=== PATIENT | male | born 1940 | race Caucasian/White ===

== ENCOUNTER → 2022-10-28 09:48 | Outpatient (BNVA) | payer MEDICARE, SELFPAY | PROVIDERS: PCP Internal Medicine; Visit Provider Physician Assistant | DX: M75.122 Complete rotator cuff tear or rupture of left shoulder, not specified as traumatic (principal) | CPT/HCPCS: 99212 ==

== ENCOUNTER 2022-11-16 08:54 | Outpatient (AMB) | payer MEDICARE, SELFPAY ==
--- NOTE | 2022-11-16 08:55 | A.OFFVIS_ITS ---
Intake Vital Signs 11/16/22 08:56 Height 5 ft 5 in Weight 150 lb BMI 25.0 Intake Visit Reasons: ov- discuss concerns for RTC surgery Intake Note: Joesph is an 82 year old male who presents today for a follow up of his left shoulder pain and weaknss. Today the patient is most concerned with progressively worsening low back pain which radiates into his right leg as well as associated right leg weakness. The patient states that he underwent low back surgery by Dr. Pan several years ago. He was also evaluated early is here by a back specialist in [place]. The patient states that he has fallen several times over the last few months. He is concerned because his right leg continues to get weaker over time. He has done physical therapy which gave him minimal relief. Allergies No Known Allergies Allergy (Verified 11/16/22 08:59) PFSH Medical History Hx of osteoarthritis Social History Current occupational status: retired Current occupation: left hand Physical Exam Vital Signs: BMI result Body Mass Index 25.0 Const Other: Well-nourished well-developed very friendly male awake alert and oriented x3 in no acute distress Extrem Other: Bilateral upper extremity examination shows good capillary refill, no skin lesions noted, normal sensation light touch Left shoulder examination shows slightly decreased range of motion when compared to his right shoulder, 4/5 strength with supraspinatus testing, positive impingement signs, tenderness over his acromioclavicular joint, no instability Low back examination shows right-sided paraspinal muscle tenderness, 4/5 strength with testing of his right hip flexors and knee extensors, positive straight leg raise test on the right at 70 degrees Results Reviewed Results Reviewed: MRI of the patient's lumbar spine is not available today MRI of the patient's left shoulder show severe acromioclavicular joint narrowing, type 2 acromion, Assessment & Plan Assessment & Plan (1) Complete rotator cuff tear of left shoulder: Code(s): M75.122 - Complete rotator cuff tear or rupture of left shoulder, not specified as traumatic Plan Mr. Guy presents with progressively worsening left shoulder pain and weakness due to impingement syndrome, acromioclavicular joint arthritis and a f ull-thickness rotator cuff tear. I had a lengthy discussion with the patient regarding the treatment options. At this point he has failed continued nonoperative treatments. The risks and benefits of left shoulder surgery were discussed at length with the patient. Surgery will most likely involve left shoulder diagnostic arthroscopy with distal clavicle excision, acromioplasty and rotator cuff repair. The patient's shoulder surgery is tentatively scheduled for November 25. Because of his progressively worsening right leg weakness likely due to recurrence lumbar spine pathology I will have him evaluated by our spine service here at [facility] prior to proceeding with left shoulder surgery. We can certainly reschedule his shoulder surgery as needed to allow for proper care of his low back. The patient will follow-up as instructed. Feel free to call me at any time should questions regarding his orthopedic management arise. I spent 22 minutes in reviewing the patient's records and imaging studies, seeing the patient and documenting in the medical record. Coding Level of Care Code Est Pt Level 2 (20886) Diagnoses Complete rotator cuff tear of left shoulder M75.122
[2022-11-16 08:56] VITALS: BMI 25.0
== END 2022-11-16 09:24 | disposition home or self-care (01) ==
PROVIDERS: PCP Internal Medicine; Visit Provider Orthopaedic Surgery
DX: M75.122 Complete rotator cuff tear or rupture of left shoulder, not specified as traumatic (principal)
CPT/HCPCS: 99212

== ENCOUNTER → 2022-11-16 08:54 | Outpatient (BNVA) | payer MEDICARE, SELFPAY | PROVIDERS: PCP Internal Medicine; Visit Provider Orthopaedic Surgery | DX: M75.122 Complete rotator cuff tear or rupture of left shoulder, not specified as traumatic (principal) | CPT/HCPCS: 99212 ==

== ENCOUNTER 2022-11-18 11:14 | Outpatient (AMB) | payer MEDICARE, SELFPAY ==
--- NOTE | 2022-11-18 11:31 | HO.SPINEOV ---
Intake Intake Visit Reasons: Rt. leg weakness Intake Note: Mr. Guy is here today c/o Rt. leg weakness. MRI done @ [facility]/brought disc. Sweatband Shaper Required: No Allergies No Known Allergies Allergy (Verified 11/16/22 08:59) Assessment & Plan Assessment & Plan (1) Back pain of lumbar region with sciatica: Code(s): M54.40 - Lumbago with sciatica, unspecified side Plan Dear Dr Lo, Thank you for referring Mr Guy to our office today. This is a very nice 82-year-old gentleman who had a back surgery done 50 years ago, subsequent follow-up back surgeries done by Dr. Pan twice, once at [facility] few years back and then 1 at [facility] just last fall. The patient noticed a few months after his last surgery he started to get pain that was radiating down from his right side of his low back into his lateral thigh with numbness into the anterior tibial region and slightly into the foot. The pain in the legs caused significant difficulty with walking. At times his leg will spontaneously give out and he will fall. That has resulted in a shoulder injury for which he is now currently about to undergo surgery. He does not report any cauda equina symptoms. He is been seen by Dr. Pan in follow-up, and from what he describes I suspect he offered him a TLIF at L4-5. The patient did have an injection at L4-5 which gave him a great response for about 2 months or so. He has also tried chiropractic therapy, anti-inflammatories and Tylenol. More recently with the effect of the cortisone wearing off he is now back to being in significant daily pain when he walks and stands. More than that though, he is very scared about the frequent falls he is getting when his legs giving out. He is here today to see us with an MRI done in [place] back in June showing significant disc collapse, recurrent stenosis PMH: He is very healthy for 82 years old, he has no medical problems outside of his back surgeries. He also did have an anterior cervical fusion as well. Social hx: He does not smoke Medications: Celebrex and Tylenol Allergies: None Physical exam: Intact reflexes and strength in the lower extremities Imaging review: Lumbar MRI done in June 2022 in [place], shows that he has some clumping of the cauda equina nerve roots with postsurgical changes seen on the right at L2-3, L3-4 and L4-5. He has an enlarged facet on the right at L2-3 compressing the right L3 nerve root. He has moderate stenosis at L3-4 and at L4-5 he has significantly enlarged facets encroaching on the lateral recess as well as foraminal stenosis on the right at L4 which is severe. There may be a herniated disc talked up in that foramen. He also has bilateral L5 foraminal stenosis. Impression: This is an 82-year-old gentleman with a history of multiple previous back surgeries, the last 1 done less than a year ago and the patient has had a return of a severe right leg pain which goes into his right lateral thigh and gives him tingling and numbness into his anterior tibial region and moves towards the top of his foot. The pain is aggravated with standing and walking for any distance and when he sits down it goes away. He has intact neurological exam. He did have a tremendous relief from an L4-5 epidural injection in [place] that last 2 months. Unfortunately at [facility] that has worn off. More than anything though he is getting frightened because he has taken 2 or 3 significant falls, one of which resulted in a shoulder injury that now may require surgery. He certainly does have enough recurrent stenosis at his previous surgical sites that could explain the pain. He had an upright x-ray done in [facility] also and that shows a significant scoliotic curvature. Typically this may require spinal fusion to treat given that the previous decompression did not give him long-lasting relief. Dr Pan has discussed the idea of spinal fusion with him, but according to the patient he was very reluctant to consider doing it and did not expect a significant improvement in the patient's symptoms. I will review the images with Dr. Aguirre and get back to the patient with a final plan. Thank you for allowing us to care for your patient. The total time spent with this visit with this patient was 45 minutes reviewing history, physical exam, lumbar imaging review, and implementation of treatment plan or further diagnostic testing Patric Aguirre MD,PhD [facility] Coding Level of Care Code New Pt Level 4 (22208) Diagnoses Back pain of lumbar region with sciatica M54.40
== END 2022-11-18 13:13 | disposition home or self-care (01) ==
PROVIDERS: PCP Internal Medicine; Referring Provider Orthopaedic Surgery; Visit Provider Physician Assistant
DX: M54.40 Lumbago with sciatica, unspecified side (principal)
CPT/HCPCS: 99204

== ENCOUNTER → 2022-11-18 11:14 | Outpatient (BNVA) | payer MEDICARE, SELFPAY | PROVIDERS: PCP Internal Medicine; Visit Provider Physician Assistant | DX: M54.40 Lumbago with sciatica, unspecified side (principal) | CPT/HCPCS: 99202 ==

== ENCOUNTER 2022-11-23 13:46 | Outpatient (AMB) | payer MEDICARE, SELFPAY ==
--- NOTE | 2022-11-23 14:15 | MHC.OFFVIS ---
Intake Intake Visit Reasons: discuss sx Intake Note: Mr. 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 He is scheduled to undergo an oblique lateral lumbar interbody fusion, minimally invasive technique to indirectly decompress the exiting nerve roots and central canal. This procedure is especially beneficial to this patient as he had multiple lumbar spine surgeries done in the past and this procedure will avoid going through previous scar tissue. I discussed the procedure, possible complications and expected postoperative course. He is scheduled for 01/03/2023. I spent 20 minutes in this consult for preparation and discussion of the plan. I will keep you updated on his progress. 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
== END 2022-11-23 15:34 | disposition home or self-care (01) ==
PROVIDERS: PCP Internal Medicine; Visit Provider Neurological Surgery
DX: M41.50 Other secondary scoliosis, site unspecified (principal); M54.40 Lumbago with sciatica, unspecified side
CPT/HCPCS: 99212

== ENCOUNTER → 2022-11-23 13:46 | Outpatient (BNVA) | payer MEDICARE, SELFPAY | PROVIDERS: PCP Internal Medicine; Visit Provider Neurological Surgery | DX: M54.40 Lumbago with sciatica, unspecified side (principal); M41.50 Other secondary scoliosis, site unspecified | CPT/HCPCS: 99212 ==

== ENCOUNTER → 2022-12-12 13:27 | Outpatient (BNV) | payer MEDICARE, SELFPAY | PROVIDERS: PCP Internal Medicine; Visit Provider Internal Medicine Cardiovascular Disease | DX: Z01.818 Encounter for other preprocedural examination (principal) | CPT/HCPCS: 93010 ==

== ENCOUNTER → 2022-12-19 08:27 | Outpatient (BNV) | payer MEDICARE, SELFPAY | PROVIDERS: PCP Internal Medicine; Visit Provider Neurological Surgery | DX: M48.062 Spinal stenosis, lumbar region with neurogenic claudication (principal); M41.86 Other forms of scoliosis, lumbar region; Z48.89 Encounter for other specified surgical aftercare | CPT/HCPCS: 20930; 22558; 22612; 22840; 22853; 63056 ==

== ENCOUNTER 2022-12-19 12:04 | Inpatient (IN) | payer MEDICARE, SELFPAY ==
--- NOTE | 2022-12-12 | ECG_ITS ---
Test Reason : PREOP Blood Pressure : / mmHG Vent. Rate : 073 BPM Atrial Rate : 073 BPM P-R Int : 132 ms QRS Dur : 092 ms QT Int : 384 ms P-R-T Axes : 044 022 027 degrees QTc Int : 423 ms Normal sinus rhythm Normal ECG When compared with ECG of 19-MAY-2005 11:18, No significant change was found Referred By: Melia Patel Electronically Signed By:Jamey Bravo
[2022-12-12 12:52] VITALS: BP 147/71; PULSE 98; RESP 16; O2SAT 95; BMI 25.1
--- NOTE | 2022-12-12 13:11 | HO.ANESPROP2 ---
Documented by User: Melia Patel NP 12/16/22 10:56 HPI - Anesthesia Eval Consult details Narrative: 82yo M for L4-5 Transkambin Lumbar Interbody Fusion, 12/19/22 No recent illness. No CP/SOB with golf/walking. 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 (Acute) Past Medical History Medical History Back pain Elevated cholesterol Erectile dysfunction Hx of osteoarthritis Scoliosis Family History Family history of problems with anesthesia: No Surgical History Surgical History H/O colonoscopy History of back surgery History of back surgery History of carpal tunnel release History of esophagogastroduodenoscopy (EGD) Hx of neck surgery History of Problems with Anesthesia: No Social History Social History Are you a primary infant childcare provider to a significant other at home: No Do you presently have visiting nurse or other home services: No Patient Tobacco Use Status: Never used Tobacco Use of substances other than those prescribed or required for medical reasons: No Have you been hit, kicked, punched, or otherwise hurt by someone within the past year? If so, by whom?: No Are you DNR?: No Advance Directives: No Advance Directives Information Provided: Yes Advance Directives on File: No Recently lost weight without trying: No Nutrition Risks: No Nutritional Risk Poor oral hygiene: No Current occupational status: retired Current occupation: left hand Meds Allergies Allergy/AdvReac Type Severity Reaction Status Date / Time No Known Allergies Allergy Verified 11/16/22 08:59 Home Medications Medication Instructions Recorded Confirmed Last Taken Type celecoxib 100 mg capsule 100 mg PO BID 10/28/22 12/12/22 12/16/22 History acetaminophen 500 mg tablet 1,000 mg PO QID PRN Pain 12/12/22 12/12/22 Unknown History omeprazole 20 mg tablet,delayed 20 mg PO DAILY 12/12/22 12/12/22 12/19/22 History release Exam Exam Date and Time: December 12, 2022 1311 Height,Weight and Vital Signs: Height 5 ft 4 in Weight 66.3 kg Last Vital Signs Pulse 98 12/12/22 12:52 Resp 16 12/12/22 12:52 BP 147/71 H 12/12/22 12:52 Pulse Ox 95 12/12/22 12:52 O2 Del Method Room Air 12/12/22 12:52 Pertinent Lab Results Pertinent Lab Results: Lab Results 12/12/22 12/12/22 Range/Units 13:30 13:30 WBC 7.5 (4.8-10.8) X10*3/uL RBC 4.84 (4.60-5.80) X10*6/uL Hgb 14.7 (14.0-18.0) g/dl Hct 44.5 (42.0-52.0) % MCV 91.9 (80.0-98.0) fL MCH 30.4 (27.0-33.0) pg MCHC 33.0 (31.0-36.0) g/dl RDW 14.8 (11.0-16.0) % Plt Count 289 (160-400) X10*3/uL MPV 11.1 (9.4-12.4) fL Absolute Nucleated RBC 0.000 (0.0-0.012) X10*3/uL Nucleated RBC % (auto) 0.0 (0.0-0.2) /100WBC Sodium 138 (135-145) mmol/L Potassium 3.8 (3.3-5.1) mmol/L Chloride 101 (96-108) mmol/L Carbon Dioxide 29 (22-29) mmol/L Anion Gap 12 (12-20) BUN 15 (9-16) mg/dL Creatinine 0.84 (0.5-1.4) mg/dL Estim Creat Clear Calc 58.7 Estimated GFR > 60 Random Glucose 163 H (60-115) mg/dL Calcium 9.7 (8.4-10.2) mg/dL Narrative Narrative: EKG 12/2022 Vent. Rate : 073 BPM ? ? Atrial Rate : 073 BPM ?? P-R Int : 132 ms? QRS Dur : 092 ms ? ? QT Int : 384 ms ? ? ? P-R-T Axes : 044 022 027 degrees ?? QTc Int : 423 ms ? Normal sinus rhythm Normal ECG When compared with ECG of 19-MAY-2005 11:18, No significant change was found Airway Neck ROM: Full (s/p neck surgery) Loose/Missing/Broken Teeth: No (Capped front upper) Heart: RRR Lungs: CTAB Assessment and Plan Assessment Anesthesia Assessment: Anesthesia Plan Discussed and PAT Visit Final Anesthetic Review Family History of Problems with Anesthesia: No History of Problems with Anesthesia: No Documented by User: Isa Franco MD 12/19/22 09:13 [facility] Past Medical History Medical History Back pain Elevated cholesterol Erectile dysfunction Hx of osteoarthritis Scoliosis Surgical History Surgical History H/O colonoscopy History of back surgery History of back surgery History of carpal tunnel release History of esophagogastroduodenoscopy (EGD) Hx of neck surgery Social History Social History Are you a primary infant childcare provider to a significant other at home: No Do you presently have visiting nurse or other home services: No Patient Tobacco Use Status: Never used Tobacco Use of substances other than those prescribed or required for medical reasons: No Have you been hit, kicked, punched, or otherwise hurt by someone within the past year? If so, by whom?: No Are you DNR?: No Advance Directives: No Advance Directives Information Provided: Yes Advance Directives on File: No Recently lost weight without trying: No Nutrition Risks: No Nutritional Risk Poor oral hygiene: No Current occupational status: retired Current occupation: left hand Meds Allergies Allergy/AdvReac Type Severity Reaction Status Date / Time No Known Allergies Allergy Verified 11/16/22 08:59 Home Medications Medication Instructions Recorded Confirmed Last Taken Type celecoxib 100 mg capsule 100 mg PO BID 10/28/22 12/12/22 12/16/22 History acetaminophen 500 mg tablet 1,000 mg PO QID PRN Pain 12/12/22 12/12/22 Unknown History omeprazole 20 mg tablet,delayed 20 mg PO DAILY 12/12/22 12/12/22 12/19/22 History release Exam Airway Mallampati Class: II TM Dist: >3cm Loose/Missing/Broken Teeth: Yes (multiple fillings), Upper and Lower Assessment and Plan Assessment Anesthesia Assessment: Chart Reviewed Final Anesthetic Review NPO: Yes ASA Class: II Final Preanesthetic Review: No Changes in Pt Med Stat, Meds/Allgs Chart Reviewed, Consent Obtained/Reviewed and Anes Risks/Benef Reviewed Patient Risk: Intermediate Procedure Risk: Intermediate Anesthetic Plan Anesthetic Plan: GA Disposition: Standard PACU (pre existing left rotator cuff tear with pain )
[2022-12-12 14:35] LABS: Hematocrit 44.5 % (42.0-52.0); Hemoglobin 14.7 g/dl (14.0-18.0); Mean Corpuscular Hemoglobin 30.4 pg (27.0-33.0); Mean Corpuscular Volume 91.9 fL (80.0-98.0); Mean Platelet Volume 11.1 fL (9.4-12.4); Platelet Count 289 X10*3/uL (160-400); Red Blood Count 4.84 X10*6/uL (4.60-5.80); Red Cell Distribution Width 14.8 % (11.0-16.0); White Blood Count 7.5 X10*3/uL (4.8-10.8)
[2022-12-12 15:20] LABS: Anion Gap 12 (12-20); Blood Urea Nitrogen 15 mg/dL (9-16); Calcium 9.7 mg/dL (8.4-10.2); Carbon Dioxide 29 mmol/L (22-29); Chloride 101 mmol/L (96-108); Creatinine Clr Calc Pharmacy 58.7; Estimated Glomerular Filt Rate > 60; Glucose Random 163 mg/dL (60-115); Potassium 3.8 mmol/L (3.3-5.1); Sodium 138 mmol/L (135-145)
[2022-12-19] VITALS (16 sets, daily range): BP systolic 122–147; BP diastolic 58–84; PULSE 68–86; RESP 12–20; TEMP 36–36.3; O2SAT 95–100; BMI 25.0
--- NOTE | ~2022-12-19 | FL_ITS ---
EXAMINATION: XR FLUOROSCOPY WITH IMAGES CLINICAL INFORMATION: Interbody fusion L4-L5. COMPARISON: None. TECHNIQUE: Fluoroscopy Supervised By: Evans Aguirre. Fluoroscopy Time: 1 minute. Cumulative Dose: 61 mGy. DAP: 0.4 Gyc-m2. Images: 6. FINDINGS: Intraoperative fluoroscopic images demonstrate posterior fusion hardware with bilateral transpedicular screws and interbody fusion at L4-L5. FL/FL guidance in OR IMPRESSION: Fluoroscopy guidance for lumbar spine surgery.
--- NOTE | 2022-12-19 08:51 | MHC.SHP ---
Pre-Procedural Eval Section A Date of Service: 12/19/22 The patient is an INPATIENT: No The History & Physical has been completed within 30 days and I have reviewed it.: No Section B Chief Complaint: Lumbago with sciatica, unspecified side Details of Present Illness: back pain with right side leg pain Relevant Family History (Specify if Yes): No Relevant Social History: None Present Medications: see Short Stay Collaborative assessment Medical History: No relevant PMH History of Previous Operations: No relevant previous surgery Allergies: Allergies Allergy/AdvReac Type Severity Reaction Status Date / Time No Known Allergies Allergy Verified 11/16/22 08:59 Review of Systems Sugical H&P ROS: Negative: Constitution, Cardiovascular, Respiratory, Neurological, Psychiatric, Hem-Onc, Allergic/Immunologic, Gastrointestinal, Genitourinary, Musculoskeletal, Integumentary, Endocrine and Eyes/Ears/Nose/Throat Exam Surgical H&P Exam: Not Evaluated: HEENT, Not Evaluated: Heart, Not Evaluated: Lungs, Not Evaluated: Extremities, Not Evaluated: Abdomen, Not Evaluated: Skin and Not Evaluated: Neurological Plan Diagnosis/Plan: Unchanged (L4-56 Oblique lateral lumbar interbody fusion (Transkambin), right side approach ) I have reviewed the history and physical and performed a pertinent physical examination on my patient. No changes have occurred unless specified. Time Spent With Patient Time: Total time managing care of this patient today ___10_ minutes.
[2022-12-19] MEDS: Lactated Ringers 1,000 ML 100 ML IVCONT (08:58)
[2022-12-19] MEDS: Gabapentin 300 MG CAPSULE PO ×3 (09:03→21:21)
[2022-12-19] MEDS: methocarbamoL 750 MG TABLET PO (09:03)
--- NOTE | 2022-12-19 11:44 | P.OP_ITS ---
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 1)?L4 -5?oblique?lateral?lumbar?inter body?fusion?with?discectomy,?preparation?of?the?endplates?and?placement?of?a?tit anium?bullet?cage?packed?with?allograft,?anterior?to?the?transverse?process?in?m odified?prone?position,?with?intraoperat gaby?biplanar?fluoroscopy?imaging?and?electrophysiological?monitoring 2)?L4-5?posterior?minimally?invasive?pedicle?screw?placement?and?posterior?later al?instrumentation?and?fusion?with?intraoperative? biplanar?fluoroscopic?imaging?and?electrophysiological?monitoring 3)?injection?of?0.75?Marcaine?in?paravertebral?tissue?for?postop?management Consent Informed?Consent?was?obtained?for?this?operation .?I?have?explained?the?nature,?purpose?and?benefits?of?the?operation.?I?have?dis cussed?the?risks?and?benefit?of?the?operation?including?possible?complications?o r?adverse?events?with?patient/family.?Al ternative(s)?were?discussed?with?the?patient?with?their?relative?benefits?and?ri sks?as?well?as?the?consequences?of?not?accepting?the?operation?were?included?in? obtaining?consent. Surgeon:?GUSTAVO WANG?A?,?PHD Procedure?Assisted?By:??Patric?Jasper,?Pac Description?of?Procedure: This?is?a?complex?surgery?on?the?lumbar?spine?and?an?assistant at surgery?as?needed?for?saf ety?of?the?surgery?for?setup?of?instrumentation,?retraction?and?closing. History:??This?82-year-old?male?had?previous?lumbar?decompressions?done?in?anoth er?institution.??He?was?offered?a?L4-5?lumbar?fusion?in?the?other?institution ?but?they?were?rather?hesitant?due?to?the?amount?of?scar?tissue.??I?offered?him? a?minimally?invasive?procedure?to?avoid?going?through?the?scar?tissue?and?to?ind irectly?decompress?his?nerve?is?structur es..??The?patient?was?offered?an?oblique?lumbar?lateral?interbody?fusion?followe d?by?a?posterior?lateral?instrumented?fusion[].?The?procedure?and?complications? were?explained?and?the?patient?was?consented.? Procedure:??The?patient?was?brought?to?the?operating?room?and?endotracheally?int ubated.?The?patient?was?positioned?on?the?Tiago?spine?table?in?a?modified?pron e?position?for?ease?of?access?fro m?the?right?side.?2C?arms?were?installed?for?fluoroscopy.?Prepping?and?draping?w as?done?followed?by?timeout.?The?landmarks,?including?spinal?processes,?transver se?processes,?disc?space,?endplates?and?pedicles?are?identified?and?marked.? The?following?steps?are?taken?for?each?specified?level: For?L4-5?level:??Expandable?Life?Spine?Pro?lift?titanium?Cage?with?a?32?mm?lengt h?and?an?initial?8?mm?height?was?expanded?to?a?13?mm?height. The?patient?was?turned?using?the?rotation?of?the?surgical?table?so?a?near?direct ?anterior?lateral?approach?to?the?lumbar?spine?could?be?achieved.??A?small?incis ion? was?then?made?superior?to?the?mid?iliac?crest?and?then?using?biplanar?fluoroscop y?visualization,?under?electrophysiological?monitoring?and?stimulation,?we?intro duced?an?electrophysiological?probe?thro ugh?the?retroperitoneal?space?into?the?desired?disc?anterior?to?the?transverse?p rocess?and?then?passed?it?into?the?disc?space?after?finding?a?silent?window.?The ?sleeve?was?retained?and?the?probe?was?r emoved,?then?the?K?wire?was?passed?sequentially?into?the?disc?space.?A?dilating? tube?was?then?passed?along?the?same?route.?Following?this,?a?working?channel,?a? working?channel?was?then?passed?sequenti ally?into?the?disc?space.??The?working?channel?was?manually?held?in?position?whi le?a?series?of?disc?cleaning?tools?were?passed?through?the?channel?to?remove?the ?affected?disc?under?clear?and?direct?bi planar?fluoroscopic?visualization,?decompress?the?nerve?roots?and?equal?corticat ed?vertebral?endplates?at?this?segment.? Arthrodesis?of?the?intervertebral?space?via?an?anterior?retroperitoneal?exposu re?was?achieved?through?Kambin's?[place]?and?lateral?extraforaminal?space.??All ograft?was?added?into?the?anterior?disc?space.??The?working?channel?was?then?rem khloe.??A?titanium?interbody?cage?tightly ?packed?with?allograft?was?then?inserted?into?the?midportion?of?the?intervertebr al?disc?space?over?a?K-wire?under?biplanar?fluoroscopic?visualization?and?intrao perative?neuro?monitoring.??The?inter?pe dicular?and?intradiscal?space?was?significantly?enlarged?and?disc?height?was?res tored?to?worked?normal?anatomy?there?for?releasing?pressure?on?the?nerve?roots?v isual?largely?the?spinal?canal?and?later al?recess?as?well?as?foramen?were?bilateral?decompressed?and?all?bones?were?conf ined?to?the?borders?of?the?disc?space?. ??The?following?steps?are?then?taken?for?each?specified?level: ?L4-5?level:?Bilateral?L4-5?screws?with?a?diameter?of?6.5?x?45?mm.? The?posterolateral?fusion?is?initiated?after?the?patient?is?rotated?to?a?true?pr one?position.??The?entry?point?to?the?pedicle?is?identified?in?t he?AP?and?lateral?views?and?then?the?skin?incision?is?injected?with?local?anesth etic.??We?entered?the?pedicle?with?the?pediguard?tap?after?which?a?K-wire?was?in troduced?into?the?vertebral?body.??Addit ionally,?uses?small.??Ostial?decorticate?ir?along?the?screws?to?refresh?the?surf meri?of?the?bone?and?facet?I?put?some?amount?of?allograft?for?additional?stabilit y?for?the?posterolateral?fusion.??Over?t he?K-wire?we?insert?pedicle?screws?bilaterally.??After?the?screws?were?placed,?w e?put?the?crow?in?place?and?under?fluoroscopic?imaging,?we?locked?the?crow?in?plac e?and?removed?the?screw?tops?and?then?ea ch?incision?has?been?closed?with??0?Vicryl?for?the?fascia?and?a?3-0?Vicryl?for?t he?subdermal?layer.?Steri-Strips?were?used?to?approximate?the?incisions.?An?OpSi te?with?Tegaderm?was?used?to?cover?the?i ncision.?Final?x-rays?and?AP?and?lateral?projection?showed?good?position?of?the? interbody?device?and?instrumentation.?All?sponge?and?needle?counts?were?correct. ?The?patient?was?extubated?and?transport ed?in?a?stable?condition?to?the?recovery?room. 2-0?Vicryl This?procedure?was?done?with?the?aid?of?a?physician?assistant at surgery?as?a?qualified?res ident?was?not?available. Anesthesia:?General Estimated?Blood?Loss?(ml):??30 Specimen:?None Duration?of?Surgery:??60?minutes Postoperative?Plan:?Admit?to?inpatient?
--- NOTE | 2022-12-19 11:44 | W.PM.OPN ---
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 1)?L4 -5?oblique?lateral?lumbar?interbody?fusion?with?discectomy,?preparation?of?the?endplates?and?placement?of?a?titanium?bullet?cage?packed?with?allograft,?anterior?to?the?transverse?process?in?modified?prone?position,?with?intraoperative?biplanar?fluoro scopy?imaging?and?electrophysiological?monitoring 2)?L4-5?posterior?minimally?invasive?pedicle?screw?placement?and?posterior?lateral?instrumentation?and?fusion?with?intraoperative?biplanar?fluoroscopic?imaging?and?electrophysiological?monitoring 3)?injection?of?0.75?Marcaine?in?paravertebral?tissue?for?postop?management Consent Informed?Consent?was?obtained?for?this?operation.?I?have?explained?the?nature,?purpose?and?benefits?of?the?operation.?I?have?discussed?the?risks?and?benefit?of?the?operation?including?possible?complications?or?adverse?events?with?patient/family.?Alte rnative(s)?were?discussed?with?the?patient?with?their?relative?benefits?and?risks?as?well?as?the?consequences?of?not?accepting?the?operation?were?included?in?obtaining?consent. Surgeon:?GUSTAVO WANG?A?,?PHD Procedure?Assisted?By:??Patric?Jasper,?Pac Description?of?Procedure: This?is?a?complex?surgery?on?the?lumbar?spine?and?an?assistant professor of surgery?as?needed?for?safety?of?the?surgery?for?setup?of?instrumentation,?retraction?and?closing. History:??This?82-year-old?male?had?previous?lumbar?decompressions?done?in?another?institution.??He?was?offered?a?L4-5?lumbar?fusion?in?the?other?institution?but?they?were?rather?hesitant?due?to?the?amount?of?scar?tissue.??I?offered?him?a?minimally?i nvasive?procedure?to?avoid?going?through?the?scar?tissue?and?to?indirectly?decompress?his?nerve?is?structures..??The?patient?was?offered?an?oblique?lumbar?lateral?interbody?fusion?followed?by?a?posterior?lateral?instrumented?fusion[].?The?procedure?a nd?complications?were?explained?and?the?patient?was?consented.? Procedure:??The?patient?was?brought?to?the?operating?room?and?endotracheally?intubated.?The?patient?was?positioned?on?the?Tiago?spine?table?in?a?modified?prone?position?for?ease?of?access?from?the?right?side.?2C?arms?were?installed?for?fluoroscopy. ?Prepping?and?draping?was?done?followed?by?timeout.?The?landmarks,?including?spinal?processes,?transverse?processes,?disc?space,?endplates?and?pedicles?are?identified?and?marked.? The?following?steps?are?taken?for?each?specified?level: For?L4-5?level:??Expandable?Life?Spine?Pro?lift?titanium?Cage?with?a?32?mm?length?and?an?initial?8?mm?height?was?expanded?to?a?13?mm?height. The?patient?was?turned?using?the?rotation?of?the?surgical?table?so?a?near?direct?anterior?lateral?approach?to?the?lumbar?spine?could?be?achieved.??A?small?incision?was?then?made?superior?to?the?mid?iliac?crest?and?then?using?biplanar?fluoroscopy?visu alization,?under?electrophysiological?monitoring?and?stimulation,?we?introduced?an?electrophysiological?probe?through?the?retroperitoneal?space?into?the?desired?disc?anterior?to?the?transverse?process?and?then?passed?it?into?the?disc?space?after?find ing?a?silent?window.?The?sleeve?was?retained?and?the?probe?was?removed,?then?the?K?wire?was?passed?sequentially?into?the?disc?space.?A?dilating?tube?was?then?passed?along?the?same?route.?Following?this,?a?working?channel,?a?working?channel?was?then?p assed?sequentially?into?the?disc?space.??The?working?channel?was?manually?held?in?position?while?a?series?of?disc?cleaning?tools?were?passed?through?the?channel?to?remove?the?affected?disc?under?clear?and?direct?biplanar?fluoroscopic?visualization,?d ecompress?the?nerve?roots?and?equal?corticated?vertebral?endplates?at?this?segment.? Arthrodesis?of?the?intervertebral?space?via?an?anterior?retroperitoneal?exposure?was?achieved?through?Kambin's?[place]?and?lateral?extraforaminal?space.??Allograft?was?added?into?the?anterior?disc?space.??The?working?channel?was?then?removed.??A?tit anium?interbody?cage?tightly?packed?with?allograft?was?then?inserted?into?the?midportion?of?the?intervertebral?disc?space?over?a?K-wire?under?biplanar?fluoroscopic?visualization?and?intraoperative?neuro?monitoring.??The?inter?pedicular?and?intradisca l?space?was?significantly?enlarged?and?disc?height?was?restored?to?worked?normal?anatomy?there?for?releasing?pressure?on?the?nerve?roots?visual?largely?the?spinal?canal?and?lateral?recess?as?well?as?foramen?were?bilateral?decompressed?and?all?bones?w ere?confined?to?the?borders?of?the?disc?space?. ??The?following?steps?are?then?taken?for?each?specified?level: ?L4-5?level:?Bilateral?L4-5?screws?with?a?diameter?of?6.5?x?45?mm.? The?posterolateral?fusion?is?initiated?after?the?patient?is?rotated?to?a?true?prone?position.??The?entry?point?to?the?pedicle?is?identified?in?the?AP?and?lateral?views?and?then?the?skin?incision?is?injected?with?local?anesthetic.??We?entered?the?pedi rivera?with?the?pediguard?tap?after?which?a?K-wire?was?introduced?into?the?vertebral?body.??Additionally,?uses?small.??Ostial?decorticate?ir?along?the?screws?to?refresh?the?surface?of?the?bone?and?facet?I?put?some?amount?of?allograft?for?additional?stab ility?for?the?posterolateral?fusion.??Over?the?K-wire?we?insert?pedicle?screws?bilaterally.??After?the?screws?were?placed,?we?put?the?crow?in?place?and?under?fluoroscopic?imaging,?we?locked?the?crow?in?place?and?removed?the?screw?tops?and?then?each?inc ision?has?been?closed?with??0?Vicryl?for?the?fascia?and?a?3-0?Vicryl?for?the?subdermal?layer.?Steri-Strips?were?used?to?approximate?the?incisions.?An?OpSite?with?Tegaderm?was?used?to?cover?the?incision.?Final?x-rays?and?AP?and?lateral?projection?show ed?good?position?of?the?interbody?device?and?instrumentation.?All?sponge?and?needle?counts?were?correct.?The?patient?was?extubated?and?transported?in?a?stable?condition?to?the?recovery?room. 2-0?Vicryl This?procedure?was?done?with?the?aid?of?a?physician?assistant professor of surgery?as?a?qualified?resident?was?not?available. Anesthesia:?General Estimated?Blood?Loss?(ml):??30 Specimen:?None Duration?of?Surgery:??60?minutes Postoperative?Plan:?Admit?to?inpatient?
--- NOTE | 2022-12-19 13:28 | PHA.MEDREC ---
Pharmacy Consult ? Medication Reconciliation Pharmacy has reviewed the medication reconciliation completed by nursing. Bridgett Winston, KelsiD
--- NOTE | 2022-12-19 13:37 | HO.NEUROPN_ITS ---
Neurosurgery Operative Note Date of Service: 12/19/22 Narrative: POD: 0 Procedure: L4-5 Transkambin lumbar fusion Patient seen in recovery room. He reports he does not report any pain in his R leg at this time. He is able to sit up, converse normally, and is tolerating medication regimen. Afebrile, vital signs stable. Full & norrmal strength 5/5 UE / LE. R rotator cuff injury does not prevent patient from engaging deltoid / trapezius. Back dressings changed in recovery r oom due to some staining / serosanguineous drainage. The patient is s/p L4-5 transkambin lumbar fusion. He has 5 incision sites that are closed, with minimal drainage. He is stable and without pain at this time. Post-op orders are in, will see patient tomorrow morning for subsequent evaluation.
[2022-12-19] MEDS: oxyCODONE HCl Immed Release 5 MG TABLET 10 MG PO ×2 (15:36→21:20)
[2022-12-19] MEDS: Ketorolac Tromethamine 15 MG/ML VIAL IVPUSH ×2 (15:36→21:20)
[2022-12-19] MEDS: Acetaminophen 325 MG TABLET 975 MG PO ×2 (15:37→21:21)
[2022-12-19] MEDS: ceFAZolin Sodium/Dextrose,Iso 2 GM/50 ML PIGGYBACK IV ×2 (15:37→21:21)
[2022-12-19] MEDS: Docusate Sodium 100 MG CAPSULE PO (21:21)
[2022-12-20] MEDS: Ketorolac Tromethamine 15 MG/ML VIAL IVPUSH ×2 (02:58→09:00)
[2022-12-20] MEDS: Acetaminophen 325 MG TABLET 975 MG PO ×2 (02:59→08:59)
[2022-12-20 03:01] VITALS: BP 125/65; PULSE 85; RESP 16; TEMP 36.1; O2SAT 94
[2022-12-20] MEDS: ceFAZolin Sodium/Dextrose,Iso 2 GM/50 ML PIGGYBACK IV (03:42)
[2022-12-20] MEDS: Omeprazole 20 MG CAPSULE.DR PO (06:01)
--- NOTE | 2022-12-20 07:05 | HO.NEUROPN_ITS ---
Neurosurgery Operative Note Date of Service: 12/20/22 Narrative: POD: 1 Procedure: L4-5 Transkambin lumbar fusion Patient seen on [address] [place] [address]-Surg. He reports he does not haveany pain in his R leg at this time. He did have some pain overnight which was relieved with his pain regimen. He feels his symptoms are much better than pre-operatively.He is able to sit up, converse normally, and is tolerating his medication regimen. He is able to void and tolerates diet. He has been up out of bed to the bathroom. Afebrile, vital signs stable. Strength remains full & norrmal 5/5 in UE / LE. Some tenderness elicited but does not reduce strength. Back dressings have some signs of staining without active drainage noted. The patient is s/p L4-5 transkambin lumbar fusion. He has 5 incision sites that are closed. He is stable and his pain is well controlled with medication. The patient is cleared to be discharged from a medical standpoint, will need PT evaluation and clearance then can be DC'd.
--- NOTE | 2022-12-20 07:08 | PM.DS ---
DS: Providers Provider Date of Service: 12/20/22 Date of admission: 12/19/22 12:04 Primary care physician: Chinmay Maria MD DS: Diagnosis Discharge Diagnosis (1) Back pain of lumbar region with sciatica: Status: Acute DS: Summary Time Spent with Patient Time attestation: Total time managing care of this patient today ____ minutes. Discharge coordination time: Less than 30 minutes Quality: Safe Use of Opioids Does Pt have an Active Cancer Diagnosis on the Problem List?: No Quality: Stroke Does the patient have a stroke diagnosis?: No Physical Exam Vital Signs: Vital Signs: Last Vital Signs Temp 96.9 F 12/20/22 03:01 Pulse 85 12/20/22 03:01 Resp 16 12/20/22 03:01 BP 125/65 12/20/22 03:01 Pulse Ox 94 12/20/22 03:01 O2 Del Method Room Air 12/20/22 03:01 O2 Flow Rate 2 12/19/22 14:36 BMI result Body Mass Index 25.0 Discharge Plan Discharge Anticipated Discharge Date/Time: 12/20/22 07:43 Patient Disposition: Home, Self-Care Discharge Diagnosis: S/P transkambin lumbar fusion Referrals: Chinmay Maria MD [Primary Care Provider] - 1 Week Discharge Medications: New oxycodone 5 mg tablet 5 mg PO Q6H PRN (Reason: severe pain (scale score 7-10)) Qty: 20 0RF Rx Instructions: Partial Fill upon patient request. ibuprofen 600 mg tablet 600 mg PO Q8H PRN (Reason: pain, moderate) Qty: 30 1RF gabapentin 300 mg capsule 300 mg PO Q8H PRN (Reason: Pain) Qty: 90 0RF Continued omeprazole 20 mg Tablet,Delayed Release (Dr/Ec) 20 mg PO DAILY Changed acetaminophen 500 mg Tablet 500 mg PO Q4H PRN (Reason: Pain) Qty: 30 0RF Held celecoxib 100 mg capsule 100 mg PO BID Hold Instructions: Resume on 12/20/22. While taking Ibuprofen 600mg Discharge Orders: Discharge Order (Routine); Ordered 12/20/22 Ordered By: Denilson Jeong Diet: Advance to usual diet Activity on Discharge: As tolerated Stand Alone Forms: Patient Portal Discharge page Activity Restrictions/Additional Instructions: After your spinal surgery we ask you to observe the following restrictions/guidelines: Activity: With lumbar fusion surgery it is normal to have days in the 1st couple of weeks where you have increased leg pain. This usually lasts 1-2 days and self resolves with the continuation of medication. Attempt to stay mobile and continue activity as tolerated. It is normal to feel some discomfort as you increase your activity, but that will improve with time. We ask you avoid heavy lifting or acitivities that cause pain. As a general rule, 8lbs is a safe limit for lifting right after surgery. Walk as much as you feel comfortable but not to exhaustion. You will feel extra tired the first few days after surgery. Stay well hydrated. It is OK to walk up and down stairs You may return to driving when you are off narcotics (such as vicodin, oxycodone, dilaudid, etc), and you are back to normal functional capacity. If you have any concerns please check with office before driving. Return to work is specific to each patient and each surgery, so please speak with your doctor/PA at first follow up. Please bring paperwork such as FMLA at that time if you need it filled out. Medications: It is recommended that you take Tylenol 500 mg every 4 hours for the 1st week postoperatively, alongside ibuprofen 600 mg every 8 hours. We will also be prescribing gabapentin 300 mg to be taken every 8 hours for the 1st month postoperatively. We will give you a short supply of narcotics after surgery (usually one weeks worth). Please use this for breakthrough pain that is refractory to the Tylenol ibuprofen and gabapentin. If you need more please call the office but do not use more than prescribed. You will need to give our office 48 hours notice if you need narcotics refilled and we do not fill narcotics on weekends or evenings. If you are on a narcotic, it is a good idea to take a stool softener such as colace or senna to avoid constipation If you take blood thinner such as aspirin, Plavix, Coumadin, Effient, Eliquis etc for conditions such as Afib, DVT, Pulmonary embolus, coronary disease, stents etc please speak with your surgeon about specific details as to when you can resume these medications. You can resume NSAIDs on post op day 1 (eg: Motrin, Naproxen, etc). Follow up: Please call the office, , after surgery to arrange a 3 week follow up for wound check. Wound Care: You may remove your dressing on the first day after surgery. You may leave open to air. Please do not remove the steri strips underneath. they will fall off on their own in one week. IT IS NORMAL FOR THE WOUND TO OOZE OR BE BLOODY FOR A FEW DAYS AFTER SURGERY. IF THIS HAPPENS JUST PLACE NEW DRESSING OVER IT TO AVOID STAINING CLOTHES. You may shower on post op day # 1 We ask that you do not let the water soak the wound. If it does get wet, just towel dry lightly. Please do not scrub your incision or place any type of chemical/ointment on the wound. No tub baths, pools or jacuzzis for one month. If you have any leaking or redness from your wound, or fevers, please call office Care Plan Goals: Return to activity as tolerated Health Concerns: None Plan of Treatment: F/U in 3 weeks in office Assessment: stable
[2022-12-20 08:00] VITALS: BP 135/66; PULSE 71; RESP 17; TEMP 36.6; O2SAT 97
[2022-12-20] MEDS: Docusate Sodium 100 MG CAPSULE PO (08:59)
[2022-12-20] MEDS: Gabapentin 300 MG CAPSULE PO (08:59)
--- NOTE | 2022-12-20 11:16 | MHC.CM.PN ---
pt is indepedent he is dcd ride is on the way ..,no skilled services ordered by imm signed and placed
--- NOTE | 2022-12-20 13:44 | HO.POSTANES ---
Post Anesthesia Evaluation Post Anesthesia Evaluation Date of Service: 12/20/22 Vital Signs: Vital Signs Temp Pulse Resp BP Pulse Ox O2 Del Method 12/20/22 08:00 97.8 F 71 17 135/66 97 Room Air 12/20/22 03:01 96.9 F 85 16 125/65 94 Room Air Comments: Patient discharged prior to anesthesia post-op rounds
== END 2022-12-20 11:14 | disposition home or self-care (01) | DRG 458 ==
LOC: HO.SSSA 14:29 → HO.S3 14:39
PROVIDERS: Neurological Surgery; Nurse Practitioner; Admitting Provider Physician Assistant; PCP Internal Medicine; Visit Provider Physician Assistant
PROC: 0SG00A0 Fusion of Lumbar Vertebral Joint with Interbody Fusion Device, Anterior Approach, Anterior Column, Open Approach (ICD-10-PCS; principal; 2022-12-19 10:40)
DX: M48.062 Spinal stenosis, lumbar region with neurogenic claudication (principal); M41.56 Other secondary scoliosis, lumbar region; E78.00 Pure hypercholesterolemia, unspecified; Z79.899 Other long term (current) drug therapy
CPT/HCPCS: 36415; 80048; 85027; 93005; 97161; C1713; J0131; J0330; J0690; J1100; J1170; J1885; J2371; J2405; J3010; L8699

== ENCOUNTER 2023-01-10 14:19 | Outpatient (AMB) | payer MEDICARE, SELFPAY ==
--- NOTE | 2023-01-10 14:53 | A.SPINEOV_ITS ---
Intake Intake Visit Reasons: 1st post op Intake Note: Mr. Guy is here today for his 1st post-op visit. Blueprint Reproducer Required: No Allergies No Known Allergies Allergy (Verified 11/16/22 08:59) Assessment & Plan Assessment & Plan (1) Back pain of lumbar region with sciatica: Code(s): M54.40 - Lumbago with sciatica, unspecified side Plan Joesph is an 82-year-old male who comes in for his 1st postoperative visit today. He is s/p L4 -5?oblique?lateral?lumbar?interbody?fusion. He states that his symptoms are much better today than they were preoperatively. He reports no radicular symptoms in his right leg, and very minimal pain his low back. She reports that he has been up completing his daily ADLs, and attempting to remain busy. He has not been bending/twisting or lifting heavy things, despite his desire to remain active. He reports that he is able to ambulate much better, but still finds himself having difficulty standing straight upright. When describing his pain he states that it radiates across his back in axial fashion. He rates his pain as low-grade, dull, and achy. Overall he feels he is doing very well, and states that he is ?better day by day.? He continues to utilize Tylenol and ibuprofen as needed, and was educated on prolonged use of ibuprofen. On physical exam the patient is able to sit upright, ambulate without assistance, and rise from a seated position without difficulty. Sensation is grossly intact. His incision sites are clean, dry, intact, without erythema, edema, purulence or fluctuance. Total amount of time spent in this visit was 20 minutes in discussion of symptoms, intraoperative XR imaging review, andsubsequent plan of care. Denilson Aguirre MD,PhD [facility] Orders: Orders XR lumbar spine 4V min 01/31/23 M54.40 - Lumbago with sciatica, unspecified side Coding Level of Care Code Est Pt Level 3 (32350) Diagnoses Back pain of lumbar region with sciatica M54.40
== END 2023-01-10 15:14 | disposition home or self-care (01) ==
PROVIDERS: PCP Internal Medicine; Visit Provider Physician Assistant
DX: M54.40 Lumbago with sciatica, unspecified side (principal)
CPT/HCPCS: 99213

== ENCOUNTER → 2023-01-10 14:19 | Outpatient (BNVA) | payer MEDICARE, SELFPAY | PROVIDERS: PCP Internal Medicine; Visit Provider Physician Assistant | DX: Z48.89 Encounter for other specified surgical aftercare (principal); M54.40 Lumbago with sciatica, unspecified side; Z98.1 Arthrodesis status | CPT/HCPCS: 99212 ==

== ENCOUNTER 2023-01-26 09:25 | Outpatient (AMB) | payer MEDICARE, SELFPAY ==
--- NOTE | 2023-01-26 09:32 | A.OFFVIS_ITS ---
Intake Intake Visit Reasons: PreOp-Lt RTC Repair Intake Note: Joesph 82 yr old male presents today with complaints of progressively worsening left shoulder pain and weakness. The patient states that he injured his left shoulder when he fell several months ago. Since that time his symptoms have gotten worse in spite of continued non operative treatments. He did have a cortisone injection at another facility which gave him minimal relief. He has also done physical therapy for 12 weeks over the last 6 months which aggravated his pain and weakness. He has tried Tylenol and anti-inflammatory medicines which gave him only mild relief. The patient reports difficulty lifting his lef t hand above shoulder height. The patient did undergo a low back surgery on 12/19/2022. He reports mild intermittent discomfort in his low back. He denies any fevers or chills. Allergies No Known Allergies Allergy (Verified 01/26/23 09:32) Medication List - Last Reconciled 01/26/23 by Elijah Lo MD acetaminophen 500 mg PO Q4H PRN celecoxib 100 mg PO BID ibuprofen 600 mg PO Q8H PRN omeprazole 20 mg PO DAILY oxycodone 10 mg (2 x 5 mg) PO Q4H PRN PFSH Medical History Erectile dysfunction Elevated cholesterol Back pain Scoliosis Hx of osteoarthritis Surgical History Hx of neck surgery History of back surgery History of carpal tunnel release History of esophagogastroduodenoscopy (EGD) H/O colonoscopy History of back surgery Social History Household Members: Spouse Housing: House Are you a primary residential care facility manager to a significant other at home: No Do you presently have visiting nurse or other home services: No Patient Tobacco Use Status: Never used Tobacco Current occupational status: retired Current occupation: left hand Physical Exam Const Other: Well-nourished well-developed very friendly male awake alert and oriented x3 in no acute distress Lungs clear to auscultation bilaterally with symmetric expansion Cardiovascular exam regular rate and rhythm Abdominal exam is soft nontender nondistended Extrem Other: Bilateral upper extremity examination shows good capillary refill, no skin lesions noted, normal sensation light touch Left shoulder examination shows decreased active range of motion but almost full passive range of motion when compared to his right shoulder, 4/5 strength with supraspinatus testing, positive impingement signs, tenderness over his acromioc lavicular joint, no instability Results Reviewed Results Reviewed: MRI of the patient's left shoulder show severe acromioclavicular joint narrowing, a type 2 acromion, full-thickness supraspinatus tendon tear Assessment & Plan Assessment & Plan (1) Complete rotator cuff tear of left shoulder: Code(s): M75.122 - Complete rotator cuff tear or rupture of left shoulder, not specified as traumatic Plan Mr. Guy presents with progressively worsening left shoulder pain and weakness due to impingement syndrome, acromioclavicular joint arthritis and a full-thickness rotator cuff tear. I had a lengthy discussion with the patient regarding the treatment options. At this point he has failed continued non operative treatments. The risks and benefits of left shoulder surgery were discussed at length with the patient. The patient wishes to proceed with surgery. Surgery will most likely involve left shoulder diagnostic arthroscopy with distal clavicle excision, acromioplasty and rotator cuff repair. The patient was given a prescription for oxycodone at his preoperative appointment. I will see him back 2-3 weeks following his surgery for his 1st postoperative appointment. Follow-up as instructed. Feel free to call me at any time should questions regarding his orthopedic management arise. I spent 22 minutes in reviewing the patient's records and imaging studies, seeing the patient and documenting in the medical record. Medications: New oxycodone Partial Fill upon patient request. 10 mg (2 x 5 mg) PO Q4H PRN 40 tabs 0RF pain Coding Level of Care Code Est Pt Level 2 (42587) Diagnoses Complete rotator cuff tear of left shoulder M75.122
== END 2023-01-26 10:00 | disposition home or self-care (01) ==
PROVIDERS: PCP Internal Medicine; Visit Provider Orthopaedic Surgery
DX: M75.122 Complete rotator cuff tear or rupture of left shoulder, not specified as traumatic (principal)
CPT/HCPCS: 99212

== ENCOUNTER → 2023-01-26 09:25 | Outpatient (BNVA) | payer MEDICARE, SELFPAY | PROVIDERS: PCP Internal Medicine; Visit Provider Orthopaedic Surgery | DX: M75.122 Complete rotator cuff tear or rupture of left shoulder, not specified as traumatic (principal) | CPT/HCPCS: 99212 ==

== ENCOUNTER 2023-01-31 11:53 | Outpatient (REF) | payer MEDICARE, SELFPAY | END 2023-01-31 11:54 | disposition home or self-care (01) | LOC: HO.HOSX 11:53 | PROVIDERS: Visit Provider Physician Assistant | DX: Z13.89 Encounter for screening for other disorder (principal) ==

== ENCOUNTER 2023-02-10 05:57 | Day surgery (SDC) | payer MEDICARE, SELFPAY ==
--- NOTE | 2023-02-09 20:02 | HO.ANESPROP2 ---
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 (Acute) Past Medical History Medical History Erectile dysfunction Elevated cholesterol Back pain Scoliosis Hx of osteoarthritis Family History Family history of problems with anesthesia: No Surgical History Surgical History Hx of neck surgery History of back surgery History of carpal tunnel release History of esophagogastroduodenoscopy (EGD) H/O colonoscopy History of back surgery History of Problems with Anesthesia: No Social History Social History Household Members: Spouse Housing: House Are you a primary career professional to a significant other at home: No Do you presently have visiting nurse or other home services: No Patient Tobacco Use Status: Never used Tobacco Current occupational status: retired Current occupation: left hand Meds Allergies Allergy/AdvReac Type Severity Reaction Status Date / Time No Known Allergies Allergy Verified 01/26/23 09:32 Active Medications: Current Medications Cefazolin Sodium/Dextrose (Ancef) 2 gm in 50 mls @ 100 mls/hr IV PREOP ONE Stop: 02/10/23 03:23 Home Medications Medication Instructions Recorded Confirmed Last Taken Type celecoxib 100 mg capsule 100 mg PO BID 10/28/22 01/26/23 12/16/22 History omeprazole 20 mg tablet,delayed 20 mg PO DAILY 12/12/22 01/26/23 12/19/22 History release Exam Exam Date and Time: February 09, [id number] Airway Mallampati Class: III TM Dist: >3cm Heart: rrr Lungs: cta Assessment and Plan Assessment Anesthesia Assessment: Anesthesia Plan Discussed and Chart Reviewed Final Anesthetic Review Family History of Problems with Anesthesia: No History of Problems with Anesthesia: No NPO: Yes ASA Class: II Final Preanesthetic Review: No Changes in Pt Med Stat, Meds/Allgs Chart Reviewed, Consent Obtained/Reviewed and Anes Risks/Benef Reviewed Patient Risk: Intermediate Procedure Risk: Intermediate Anesthetic Plan Anesthetic Plan: GA and Regional Block Disposition: Standard PACU
[2023-02-10] VITALS (7 sets, daily range): BP systolic 118–130; BP diastolic 66–79; PULSE 67–85; RESP 16–18; TEMP 36.2–36.4; O2SAT 4–97; BMI 25.0
--- NOTE | 2023-02-10 09:49 | PM.OP ---
Brief Operative Note Date of Service: 02/10/23 Pre-op diagnosis: Left shoulder impingement syndrome, acromioclavicular joint arthritis and large rotator cuff tear Post-op diagnosis: same Procedure: Left shoulder diagnostic arthroscopy with arthroscopic distal clavicle excision, arthroscopic acromioplasty and mini-open rotator cuff repair Implants: One suture anchor - 5.5 mm Allen and Nephrandolph Intraline Surgeon: Elijah Lo MD Anesthesia: GETA and regional Was an Life Enrichment Director used for this Procedure?: Yes Life Enrichment Director: Marlene Jones Estimated blood loss (mL): 20 Pathology: none sent Condition: stable Disposition: PACU
--- NOTE | 2023-02-10 09:52 | W.PM.OPN ---
Operative Note Operative Note Date of Service: 02/10/23 Narrative: After the patient was identified as Joesph Guy and his left shoulder was initialed by myself the patient was brought to the holding area where a left shoulder interscalene regional block was performed by the anesthesiologist in routine fashion. The patient was then brought to the operating room where general anesthesia was induced by the anesthesiologist in routine fashion. The patient was given 2 g of IV Ancef preoperatively for infection prophylaxis. Examination under anesthesia of the patient's left shoulder showed full passive range of motion of the patient's left shoulder when compared to the right. The patient was gently positioned in the beach chair position with all bony prominences well padded. The patient's left shoulder region and upper extremity were prepped and draped in sterile fashion. A formal time-out was completed. A #11 scalpel blade was used to make a posterior portal 2 cm inferior and 1 cm medial to the posterolateral corner of the acromion. Blunt trocar technique was used to enter the glenohumeral joint in routine fashion. An anterior portal was made just lateral to the coracoid process after proper positioning was confirmed using a spinal needle. Diagnostic arthroscopy showed diffuse grade 2 degenerative changes of the glenoid and humeral head articular surfaces. There was a full-thickness tear of the supraspinatus tendon with retraction just lateral to the edge of the glenoid. The biceps tendon was not identified. There was no inflammation of the anterior joint capsule. The arthroscope was then placed from the posterior portal into the subacromial space. A lateral portal was made 2 fingerbreadths lateral to the anterior lateral corner of the acromion. The ArthroCare Wand was used to ablate soft tissues along the undersurface of the acromion. The coracoacromial ligament was left intact to help prevent superior migration of the humeral head should the repair fail in the future. There was a sharp spur along the undersurface of the acromion which was removed using the hooded bur. The arthroscope was then placed into the lateral portal and the acromioplasty was completed with the bur in the posterior portal using the posterior aspect of the acromion as a cutting block. The ArthroCare Wand was then brought in through the anterior portal and was used to ablate soft tissues along the acromioclavicular joint and distal clavicle. The posterior and superior ligamentous structures were left intact. A distal clavicle excision of 6 mm was performed using the hooded bur. Any remaining bursal tissue was removed using the arthroscopic shaver. The subacromial space was irrigated and then drained. All arthroscopic instruments were removed. Sterile gloves were changed and the shoulder was once again prepped with Betadine. A #15 scalpel blade was used to extend the lateral portal to the lateral edge of the acromion. The subacromial tissues were dissected using electrocautery down to the superficial deltoid fascia. The trocar split in the anterior raphe of the deltoid was then extended to the lateral edge of the acromion using electrocautery and curved Garza scissors. Any remaining bursal tissue was removed using curved Garza scissors. Subacromial and subdeltoid adhesions were bluntly dissected. The undersurface of the acromion was palpated and it was smooth. A #2 Ethibond tag suture was placed into the posterior aspect of the supraspinatus tendon. The anterior half of the supraspinatus tendon could not be mobilized to the lateral edge of the articular cartilage. The wound was irrigated with copious amounts of normal saline solution. One suture anchor was placed into the greater tuberosity in routine fashion. The repair of the posterior portion of the supraspinatus tendon was then performed using horizontal mattress sutures under minimal tension with the patient's elbow at their side. Following the repair the shoulder was taken through a full range of motion. The repair was stable. The wound was irrigated with copious amounts of normal saline solution. The superficial and deep deltoid fascia were closed with #1 Vicryl [id number] interrupted suture. The wound was once again irrigated. The subcutaneous tissues were closed with 2-0 Vicryl interrupted suture. The skin was closed with 3-0 Prolene subcuticular suture and Steri-Strips. The anterior and posterior portals were closed with 3-0 nylon interrupted suture. Dry sterile dressing was placed over all incisions. The patient's left upper extremity was placed into a sling. The patient was awoken and extubated in the operating room. The patient was transferred to the recovery room in stable condition.
== END 2023-02-10 10:48 | disposition home or self-care (01) ==
PROVIDERS: PCP Internal Medicine; Visit Provider Orthopaedic Surgery
PROC: (CPT 29805; principal; 2023-02-10 07:30)
DX: M75.122 Complete rotator cuff tear or rupture of left shoulder, not specified as traumatic (principal); M75.42 Impingement syndrome of left shoulder; M19.012 Primary osteoarthritis, left shoulder; M19.022 Primary osteoarthritis, left elbow; E78.00 Pure hypercholesterolemia, unspecified; M41.9 Scoliosis, unspecified; Z79.1 Long term (current) use of non-steroidal anti-inflammatories (NSAID); Z79.899 Other long term (current) drug therapy; Z98.890 Other specified postprocedural states
CPT/HCPCS: 23412; 29824; 29826; C1713; J0131; J0171; J0690; J0696; J1100; J1885; J2371; J2405; J2795

== ENCOUNTER → 2023-02-10 05:57 | Outpatient (BNV) | payer MEDICARE, SELFPAY | PROVIDERS: PCP Internal Medicine; Visit Provider Orthopaedic Surgery | DX: M75.42 Impingement syndrome of left shoulder (principal); M19.012 Primary osteoarthritis, left shoulder; S46.011A Strain of muscle(s) and tendon(s) of the rotator cuff of right shoulder, initial encounter | CPT/HCPCS: 23412; 29824; 29826 ==

== ENCOUNTER 2023-02-22 13:50 | Outpatient (AMB) | payer MEDICARE, SELFPAY ==
--- NOTE | 2023-02-22 14:24 | HO.SPINEOV ---
Intake Intake Visit Reasons: 2nd post op with x rays Allergies No Known Allergies Allergy (Verified 02/10/23 06:13) Assessment & Plan Assessment & Plan (1) S/P spinal fusion: Code(s): Z98.1 - Arthrodesis status Plan Procedure: L4-5 OLIF Joesph comes in today for his 2nd postoperative visit. He reports that he continues to do well and has no restrictions with his walking. He feels he is able to complete all of his ADLs and has remained generally active. He did just have his left rotator cuff repaired, so he has not been able to use his left arm much. Overall he feels he has healed very well, and has no pain in his lower extremities, but does still have some axial low back pain. He feels that this is manageable and is only really bad in the morning when his arthritis acts up. Otherwise it is generally well. I showed him his x-rays and we reviewed the surgery that was performed. His imaging looks the same as it did in fluoroscopy with no notable changes. On exam he has no neurological deficits. Mobility as full and intact. Sensation is grossly intact. He is able to ambulate well, rises from a seated position without difficulty. Joesph continues to do well, he may be discharged as a patient. He was advised that he may follow-up with the in the future if he feels he needs to. Denilson Aguirre MD,PhD [facility] Coding Level of Care Code Global (73456) Diagnoses S/P spinal fusion Z98.1
== END 2023-02-22 14:37 | disposition home or self-care (01) ==
PROVIDERS: PCP Internal Medicine; Visit Provider Physician Assistant
DX: Z98.1 Arthrodesis status (principal)
CPT/HCPCS: 99024

== ENCOUNTER → 2023-02-22 13:50 | Outpatient (BNVA) | payer MEDICARE, SELFPAY | PROVIDERS: PCP Internal Medicine; Visit Provider Physician Assistant ==

== ENCOUNTER 2023-02-22 13:52 | Outpatient (REF) | payer MEDICARE, SELFPAY ==
--- NOTE | ~2023-02-22 | XR_ITS ---
EXAMINATION: XR LUMBOSACRAL SPINE WITH OBLIQUES CLINICAL INFORMATION: Lumbago with sciatica COMPARISON: 12/19/2022. Fluoroscopic guidance interbody fusion L4-L5. TECHNIQUE: 4 views total. AP, lateral, flexion and extension views of the lumbar spine. FINDINGS: S-shaped thoracolumbar scoliosis. Advanced degenerative changes in the imaged lower thoracic spine. Posterior fusion hardware redemonstrated at L4-L5 with bilateral rods and transpedicular screws as well as interbody disc spacer. Hardware appears intact. Alignment is stable on flexion and extension views. Advanced multilevel degenerative changes in the remainder of the lumbar spine. XR/XR lumbar spine 4V min IMPRESSION: Posterior fusion hardware redemonstrated at L4-L5 with bilateral rods and transpedicular screws as well as interbody disc spacer. Hardware appears intact. Advanced multilevel degenerative changes in the remainder of the lumbar spine.
== END 2023-02-22 13:53 | disposition home or self-care (01) ==
LOC: HO.HOSX 13:52
PROVIDERS: Visit Provider Physician Assistant
DX: M54.40 Lumbago with sciatica, unspecified side (principal); Z98.1 Arthrodesis status
CPT/HCPCS: 72110

== ENCOUNTER 2023-02-23 08:01 | Outpatient (REF) | payer MEDICARE, SELFPAY ==
--- NOTE | ~2023-02-23 | XR_ITS ---
EXAMINATION: XR SHOULDER, LEFT CLINICAL INFORMATION: Pain in the left shoulder. COMPARISON: MRI left shoulder 10/10/2022. TECHNIQUE: Two views of the left shoulder. FINDINGS: No acute fracture or subluxation. Cannulated screw projecting over the left humeral head. Mild degenerative osteoarthritis of the glenohumeral and acromioclavicular joints. No abnormal soft tissue calcifications. Visualized left-sided ribs and left lung are within normal limits. Partially imaged cervical fusion hardware. XR/XR shoulder LT min 2V IMPRESSION: 1. No acute fracture or subluxation. 2. 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 3. Cannulated screw projecting over the left humeral head.
== END 2023-02-23 08:02 | disposition home or self-care (01) ==
LOC: HO.HOSX 08:01
PROVIDERS: Visit Provider Orthopaedic Surgery
DX: M25.512 Pain in left shoulder (principal); Z47.89 Encounter for other orthopedic aftercare; Z79.899 Other long term (current) drug therapy
CPT/HCPCS: 73030

== ENCOUNTER 2023-02-23 09:23 | Outpatient (AMB) | payer MEDICARE, SELFPAY ==
--- NOTE | 2023-02-23 09:26 | A.OFFVIS_ITS ---
Intake Vital Signs 02/23/23 09:33 Height 5 ft 5 in Weight 150 lb BMI 25.0 Intake Visit Reasons: PO-Lt RTC Repair 02/10/23 DR Arboleda Note: Joesph is an 82 year old left hand dominant male who presents today for a post operative appointment s/p Left RTC Repair 02/10/23. He reports minimal discomfort in his left shoulder. He is no longer taking narcotics for his discomfort. He has been resting his shoulder as per my instructions. Allergies No Known Allergies Allergy (Verified 02/23/23 09:28) Medication List - Last Reconciled 02/23/23 by Elijah Lo MD acetaminophen 500 mg PO Q4H PRN ibuprofen 600 mg PO TID 30 days omeprazole 20 mg PO DAILY oxycodone 10 mg (2 x 5 mg) PO Q4H PRN PFSH Medical History Erectile dysfunction Elevated cholesterol Back pain Scoliosis Hx of osteoarthritis Surgical History Hx of neck surgery History of back surgery History of carpal tunnel release History of esophagogastroduodenoscopy (EGD) H/O colonoscopy History of back surgery Social History Household Members: Spouse Housing: House Are you a primary child daycare worker to a significant other at home: No Do you presently have visiting nurse or other home services: No Patient Tobacco Use Status: Never used Tobacco Current occupational status: retired Current occupation: left hand Physical Exam Vital Signs: BMI result Body Mass Index 25.0 Extrem Other: Physical examination of the patient's left shoulder shows that the surgical incisions are well healed, no erythema, minimal discomfort with passive range of motion Results Reviewed Results Reviewed: X-rays of the patient's left shoulder show bony changes consistent with distal clavicle excision and acromioplasty, 1 suture anchor within the proximal humerus with no signs of loosening Assessment & Plan Assessment & Plan (1) Left shoulder pain: Code(s): M25.512 - Pain in left shoulder Plan Mr. Guy is doing well after a left shoulder rotator cuff repair surgery on 02/10/2023. His sutures were removed and Steri-Strips placed over his incisions. He can begin physical therapy which will involve passive range of motion exercises only. I will hold off on active lifting in till he is 8 weeks out from surgery. He will contact me prior to his follow-up appointment in 1 month should any questions or concerns arise. Feel free to call me at any time should questions regarding his orthopedic management arise. Orders: Orders XR shoulder LT min 2V Today M25.512 - Pain in left shoulder PT Evaluation and Treatment Today M25.512 - Pain in left shoulder Coding Level of Care Code Global (66218) Diagnoses Left shoulder pain M25.512
[2023-02-23 09:33] VITALS: BMI 25.0
== END 2023-02-23 10:00 | disposition home or self-care (01) ==
LOC: HO.HOS 09:23
PROVIDERS: PCP Internal Medicine; Visit Provider Orthopaedic Surgery
DX: M25.512 Pain in left shoulder (principal)
CPT/HCPCS: 99024

== ENCOUNTER 2023-03-16 08:29 | Outpatient (AMB) | payer MEDICARE, SELFPAY ==
[2023-03-16 08:31] VITALS: BMI 25.0
--- NOTE | 2023-03-16 08:31 | A.OFFVIS_ITS ---
Intake Vital Signs 03/16/23 08:31 Height 5 ft 5 in Weight 150 lb BMI 25.0 Intake Visit Reasons: PO-Lt RTC Repair 02/10/23 Intake Note: Joesph a 82 year old male presents today for a post operative left RTC repair, DOS 02/10/23 Patient reports he is doing really well, denies any pain/discomfort. He continuos to work with PT. he denies any fevers or chills. He does not take any medicines for his discomfort. Allergies No Known Allergies Allergy (Verified 03/16/23 08:35) Medication List - Last Reconciled 03/16/23 by Elijah Lo MD acetaminophen 500 mg PO Q4H PRN ibuprofen 600 mg PO TID 30 days omeprazole 20 mg PO DAILY oxycodone 10 mg (2 x 5 mg) PO Q4H PRN PFSH Medical History Erectile dysfunction Elevated cholesterol Back pain Scoliosis Hx of osteoarthritis Surgical History Hx of neck surgery History of back surgery History of carpal tunnel release History of esophagogastroduodenoscopy (EGD) H/O colonoscopy History of back surgery Social History Household Members: Spouse Housing: House Are you a primary career development specialist to a significant other at home: No Do you presently have visiting nurse or other home services: No Patient Tobacco Use Status: Never used Tobacco Current occupational status: retired Current occupation: left hand Physical Exam Vital Signs: BMI result Body Mass Index 25.0 Extrem Other: Left shoulder examination shows that the surgical incisions are well healed, no erythema, minimal discomfort with resisted forward flexion, internal rotation or external rotation Assessment & Plan Assessment & Plan (1) Left shoulder pain: Code(s): M25.512 - Pain in left shoulder Plan: Mr. Guy continues to do well after undergoing left shoulder rotator cuff repair surgery. He will continue going to formal physical therapy for now. He can gradually transition to active range of motion exercises over the next few weeks as long as this does not cause him significant discomfort. The do's and don'ts of lifting were discussed at length with the patient. He will contact me prior to his follow-up appointment in 6-8 weeks should any questions or concerns arise. Feel free to call me at any time should questions regarding his orthopedic management arise. Coding Level of Care Code Global (13029) Diagnoses Left shoulder pain M25.512
== END 2023-03-16 08:59 | disposition home or self-care (01) ==
PROVIDERS: PCP Internal Medicine; Visit Provider Orthopaedic Surgery
DX: M25.512 Pain in left shoulder (principal)
CPT/HCPCS: 99024

== ENCOUNTER → 2023-03-16 08:29 | Outpatient (BNVA) | payer MEDICARE, SELFPAY | PROVIDERS: PCP Internal Medicine; Visit Provider Orthopaedic Surgery ==

== ENCOUNTER 2023-04-18 13:11 | Outpatient (AMB) | payer MEDICARE, SELFPAY ==
--- NOTE | 2023-04-18 13:25 | HO.SPINEOV ---
Intake Intake Visit Reasons: pain on left leg Intake Note: Mr. Guy is here today c/o left leg pain. 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 He had been doing well until a few months back he started to notice when he was sleeping at night radicular pain going down into his lateral thigh. At 1st it was just slightly bothersome but now has progressed to where it is every night. Yes to sleep in a recumbent stylet position at order to make the pain go away. When he is up moving around during the days absolutely fine. His neuro exam is intact. I reassured him that this just could be some settling and maybe some arthritis around some of the other areas of the spine that we did not operate on. If he begins to escalate I told him to call us back and we would be glad to order an MRI to see if anything has changed. 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
== END 2023-04-18 14:08 | disposition home or self-care (01) ==
PROVIDERS: PCP Internal Medicine; Visit Provider Neurological Surgery
DX: M41.50 Other secondary scoliosis, site unspecified (principal)
CPT/HCPCS: 99213

== ENCOUNTER → 2023-04-18 13:11 | Outpatient (BNVA) | payer MEDICARE, SELFPAY | PROVIDERS: PCP Internal Medicine; Visit Provider Neurological Surgery | DX: M79.605 Pain in left leg (principal); M41.50 Other secondary scoliosis, site unspecified; Z98.1 Arthrodesis status | CPT/HCPCS: 99212 ==

== ENCOUNTER 2023-05-11 08:32 | Outpatient (AMB) | payer MEDICARE, SELFPAY ==
[2023-05-11 08:45] VITALS: BMI 25.0
--- NOTE | 2023-05-11 08:45 | MHC.OFFVIS ---
Intake Vital Signs 05/11/23 08:45 Height 5 ft 5 in Weight 150 lb BMI 25.0 Intake Visit Reasons: PO-Lt RTC Repair 02/10/23 DR-Follow up Intake Note: Joesph is a 82 year old male who presents today for a post operative left RTC repair, DOS 02/10/23 DR. Patient reports he is doing well. He states that PT is going great, he is noticing improvements in his ROM. He does not take any medicines for his discomfort. He denies any fevers or chills. Allergies No Known Allergies Allergy (Verified 05/11/23 08:45) Medication List - Last Reconciled 05/11/23 by Elijah Lo MD acetaminophen 500 mg PO Q4H PRN ibuprofen 600 mg PO TID 30 days omeprazole 20 mg PO DAILY oxycodone 10 mg (2 x 5 mg) PO Q4H PRN PFSH Medical History Erectile dysfunction Elevated cholesterol Back pain Scoliosis Hx of osteoarthritis Surgical History Hx of neck surgery History of back surgery History of carpal tunnel release History of esophagogastroduodenoscopy (EGD) H/O colonoscopy History of back surgery Social History Household Members: Spouse Housing: House Are you a primary healthcare architect to a significant other at home: No Do you presently have visiting nurse or other home services: No Patient Tobacco Use Status: Never used Tobacco Current occupational status: retired Current occupation: left hand Physical Exam Vital Signs: BMI result Body Mass Index 25.0 Extrem Other: Left shoulder examination shows that the surgical incisions are well healed, no erythema, full active range of motion when compared to his right shoulder, minimal discomfort with range of motion Assessment & Plan Assessment & Plan (1) Left shoulder pain: Code(s): M25.512 - Pain in left shoulder Plan: Mr. Guy continues to do very well after undergoing left shoulder rotator cuff repair surgery on 02/10/2023. Will continue going to formal physical therapy for now. He will gradually transition to a home exercise program. The do's and don'ts of lifting were discussed at length with the patient. He will contact me prior to his follow-up appointment in 6 weeks should any questions or concerns arise. Feel free to call me at any time should questions regarding his orthopedic management arise. Coding Level of Care Code Global (69672) Diagnoses Left shoulder pain M25.512
== END 2023-05-11 09:23 | disposition home or self-care (01) ==
PROVIDERS: PCP Internal Medicine; Visit Provider Orthopaedic Surgery
DX: M25.512 Pain in left shoulder (principal)
CPT/HCPCS: 99024

== ENCOUNTER → 2023-05-11 08:32 | Outpatient (BNVA) | payer MEDICARE, SELFPAY | PROVIDERS: PCP Internal Medicine; Visit Provider Orthopaedic Surgery | DX: M25.512 Pain in left shoulder (principal) | CPT/HCPCS: 99212 ==

== ENCOUNTER 2023-08-29 14:17 | Outpatient (REF) | payer MEDICARE, SELFPAY ==
--- NOTE | ~2023-08-29 | XR_ITS ---
EXAMINATION: XR LUMBOSACRAL SPINE WITH OBLIQUES CLINICAL INFORMATION: Secondary scoliosis site unspecified. COMPARISON: 02/22/2023. TECHNIQUE: 4 views of the lumbar spine inclusive of AP, lateral neutral, flexion and extension. FINDINGS: S-shaped thoracolumbar scoliosis. Advanced degenerative changes in the lower thoracic spine. Redemonstration of posterior fusion hardware and disc spacer at L4-L5. Hardware appears intact. Moderate degenerative changes in the bilateral sacroiliac joints. Advanced degenerative changes with loss of disc space height and hypertrophic change most notable at L2-L3, L3-L4 and L5-S1. Alignment stable. XR/XR lumbar spine 4V min IMPRESSION: 1. Redemonstration of posterior fusion hardware at L4-L5. Hardware appears intact. 2. Advanced degenerative changes most notable at L2-L3, L3-L4 and L5-S1.
== END 2023-08-29 14:18 | disposition home or self-care (01) ==
LOC: HO.HOSX 14:17
PROVIDERS: PCP Internal Medicine; Visit Provider Neurological Surgery
DX: M54.50 Low back pain, unspecified (principal); M41.50 Other secondary scoliosis, site unspecified; Z98.1 Arthrodesis status
CPT/HCPCS: 72110; 99212

== ENCOUNTER 2023-08-29 14:17 | Outpatient (AMB) | payer MEDICARE, SELFPAY ==
--- NOTE | 2023-08-29 14:29 | A.SPINEOV_ITS ---
Intake Visit Reasons: Recurrent low back pain. Intake Note: Mr. Guy is here today for recurrent low back pain radiating down left leg. 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 He underwent a minimally invasive L4-5 lumbar fusion to address right lumbar radiculopathy in the setting of a lumbar degenerative scoliosis in December of 2022. The right lumbar radiculopathy disappeared. Two months following the surgery he developed severe left lumbar radiculopathy that was eventually treated with physical therapy and has been gone for several months. His main symptom is progressive back pain with walking and standing, which disappears when he sits down. A new sets of imaging shows stable L4-5 construct with an unchanged lumbar degenerative scoliosis above the fusion level and a straight spine on the lateral imaging. 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 His symptom may well be coming from the persistent lumbar degenerative scoliosis but unfortunately I have no diagnostics test to confirm this. He is currently taking Tylenol 4 x 500 mg a day which alleviate his symptom. I reviewed the imaging with the patient and showed him what can be done to correct the scoliosis. The problem remains that correction of the scoliosis may not his symptom. We decided to hold off on surgery. He will return to my office if further progression of the symptoms occur. Thank you for letting me take care of your patient. I spent 35 minutes in this consult to review an order imaging and to discuss plan of care. 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
== END 2023-08-29 15:48 | disposition home or self-care (01) ==
PROVIDERS: PCP Internal Medicine; Visit Provider Neurological Surgery
DX: M41.50 Other secondary scoliosis, site unspecified (principal)
CPT/HCPCS: 99214

== ENCOUNTER 2023-08-31 08:51 | Outpatient (AMB) | payer MEDICARE, SELFPAY ==
[2023-08-31 08:52] VITALS: BMI 25.0
--- NOTE | 2023-08-31 08:52 | MHC.OFFVIS ---
Vital Signs 08/31/23 08:52 Height 5 ft 5 in Weight 150 lb BMI 25.0 Intake Visit Reasons: ov- RTC Repair 02/10/23 DR-Follow up Intake Note: Joesph is a 83 year old male who presents for his post operative appointment s/p left RTC repair, on 02/10/23 DR. The patient reports mild intermittent weakness. He has completed formal physical therapy. He continues with his home exercises. He reports intermittent weakness when lifting his left hand above shoulder height. Allergies No Known Allergies Allergy (Verified 08/31/23 08:56) Medication List - Last Reconciled 08/31/23 by Elijah Lo MD acetaminophen 500 mg PO Q4H PRN ibuprofen 600 mg PO TID 30 days omeprazole 20 mg PO DAILY oxycodone 10 mg (2 x 5 mg) PO Q4H PRN PFSH Medical History Erectile dysfunction Elevated cholesterol Back pain Scoliosis Hx of osteoarthritis Surgical History Hx of neck surgery History of back surgery History of carpal tunnel release History of esophagogastroduodenoscopy (EGD) H/O colonoscopy History of back surgery Social History Household Members: Spouse Housing: House Are you a primary home health care case manager to a significant other at home: No Do you presently have visiting nurse or other home services: No Patient Tobacco Use Status: Never used Tobacco Current occupational status: retired Current occupation: left hand Physical Exam Vital Signs: BMI result Body Mass Index 25.0 Const Other: Well-nourished well-developed very friendly male awake alert and oriented x3 in no acute distress Extrem Other: Bilateral upper extremity examination shows good capillary refill, no skin lesions noted, normal sensation light touch Left examination shows that the surgical incisions are well healed, no erythema, full active range of motion when compared to his right shoulder, 4/5 strength with supraspinatus testing, no discomfort with resisted forward flexion, internal rotation or external rotation Assessment & Plan Assessment & Plan (1) Left shoulder pain: Code(s): M25.512 - Pain in left shoulder Category: Medical Plan Mr. Guy continues to do fairly well after undergoing left shoulder rotator cuff repair surgery on 02/10/2023. I discussed with the patient the fact that his symptoms should continue to improve over the next few months. He will continue with his home exercise program. The do's and don'ts of lifting were discussed at length with the patient. He will contact me prior to his follow-up appointment in 3 months should any questions or concerns arise. Feel free to call me at any time should questions regarding his orthopedic management arise. I spent 22 minutes in reviewing the patient's records and imaging studies, seeing the patient and documenting in the medical record. Coding Level of Care Code Est Pt Level 2 (98718) Diagnoses Left shoulder pain M25.512
== END 2023-08-31 09:12 | disposition home or self-care (01) ==
PROVIDERS: PCP Internal Medicine; Visit Provider Orthopaedic Surgery
DX: M25.512 Pain in left shoulder (principal)
CPT/HCPCS: 99213

== ENCOUNTER → 2023-08-31 08:51 | Outpatient (BNVA) | payer MEDICARE, SELFPAY | PROVIDERS: PCP Internal Medicine; Visit Provider Orthopaedic Surgery | DX: Z47.89 Encounter for other orthopedic aftercare (principal); M25.512 Pain in left shoulder | CPT/HCPCS: 99212 ==

== ENCOUNTER 2023-11-30 08:30 | Outpatient (AMB) | payer MEDICARE, SELFPAY ==
--- NOTE | 2023-11-30 08:31 | MHC.OFFVIS ---
Intake Visit Reasons: ov- RTC Repair 02/10/23 DR Arboleda Note: Joesph is a 83 year old male who presents to the office today for a follow up partial RTC repair 02/10/23. The patient stated that he has completed physical therapy. Although he has good passive range of motion states that he still feels significantly weak when actively using his arm. . Allergies No Known Allergies Allergy (Verified 11/30/23 08:32) Medication List - Last Reconciled 11/30/23 by Elijah Lo MD acetaminophen 500 mg PO Q4H PRN omeprazole 20 mg PO DAILY PFSH Medical History Erectile dysfunction Elevated cholesterol Back pain Scoliosis Hx of osteoarthritis Surgical History Hx of neck surgery History of back surgery History of carpal tunnel release History of esophagogastroduodenoscopy (EGD) H/O colonoscopy History of back surgery Social History Household Members: Spouse Housing: House Are you a primary career agent to a significant other at home: No Do you presently have visiting nurse or other home services: No Patient Tobacco Use Status: Never used Tobacco Current occupational status: retired Current occupation: left hand Physical Exam Const Other: Well-nourished well-developed very friendly male awake alert and oriented x3 in no acute distress Extrem Other: Bilateral upper extremity examination shows good capillary refill, no skin lesions noted, normal sensation light touch Left shoulder examination shows that the surgical incisions are well healed, no erythema, slightly decreased active range of motion when compared to his right shoulder, 3/5 strength with supraspinatus testing Assessment & Plan Assessment & Plan (1) Left shoulder pain: Code(s): M25.512 - Pain in left shoulder Category: Medical Plan Mr. Guy presents with continued left shoulder weakness after undergoing partial rotator cuff repair surgery on 02/10/2023. 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 The patient states that he would be interested in undergoing left reverse total shoulder replacement surgery if indicated. Thus, I will have him see my partner, Dr. Tadeo, who can further discuss the risks and benefits of reverse total shoulder replacement surgery with him. He will continue with his range of motion exercises in the meantime. Feel free to call me at any time should questions regarding his orthopedic management arise. I spent 21 minutes in reviewing the patient's records and imaging studies, seeing the patient and documenting in the medical record. Coding Level of Care Code Est Pt Level 3 (75005) Diagnoses Left shoulder pain M25.512
== END 2023-11-30 08:47 | disposition home or self-care (01) ==
PROVIDERS: PCP Internal Medicine; Visit Provider Orthopaedic Surgery
DX: M25.512 Pain in left shoulder (principal)
CPT/HCPCS: 99214

== ENCOUNTER → 2023-11-30 08:30 | Outpatient (BNVA) | payer MEDICARE, SELFPAY | PROVIDERS: PCP Internal Medicine; Visit Provider Orthopaedic Surgery | DX: M25.512 Pain in left shoulder (principal) | CPT/HCPCS: 99212 ==

== ENCOUNTER 2023-12-15 12:05 | Outpatient (AMB) | payer MEDICARE, SELFPAY ==
[2023-12-15 12:06] VITALS: BMI 26.6
--- NOTE | 2023-12-15 12:06 | A.OFFVIS_ITS ---
Vital Signs 12/15/23 12:06 Height 5 ft 5 in Weight 160 lb BMI 26.6 Intake Visit Reasons: OV- Left shoulder pain per DR Intake Note: Joesph is an 83 year old left hand dominant male presents today as he was referred by Dr. Lo to discuss possible Reverse TSA. Continued left shoulder weakness after undergoing partial rotator cuff repair surgery on 02/10/2023. 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 The patient states that he would be interested in undergoing left reverse total shoulder replacement surgery if indicated. Allergies No Known Allergies Allergy (Verified 12/15/23 12:07) HPI HPI OV- Left shoulder pain per DR: Details: Joesph is an 83 year old left hand dominant male presents today as he was referred by Dr. Lo to discuss possible Reverse TSA. Continued left shoulder weakness after undergoing partial rotator cuff repair surgery on 02/10/2023. 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 The patient states that he would be interested in undergoing left reverse total shoulder replacement surgery if indicated. PFSH Medical History Erectile dysfunction Elevated cholesterol Back pain Scoliosis Hx of osteoarthritis Surgical History Hx of neck surgery History of back surgery History of carpal tunnel release History of esophagogastroduodenoscopy (EGD) H/O colonoscopy History of back surgery Social History Household Members: Spouse Housing: House Are you a primary director of critical care to a significant other at home: No Do you presently have visiting nurse or other home services: No Patient Tobacco Use Status: Never used Tobacco Current occupational status: retired Current occupation: left hand Physical Exam Vital Signs: BMI result Body Mass Index 26.6 Extrem Other: 4-/5 on ec testing pain with resisted FF Results Reviewed Results Reviewed: I reviewed operative notes from 03/[address] Lo and it appears that the anterior supraspinatus was not mobile suring surgery Assessment & Plan Assessment & Plan (1) Complete rotator cuff tear of left shoulder: Code(s): M75.122 - Complete rotator cuff tear or rupture of left shoulder, not specified as traumatic Category: Medical Plan: I has a long discussion with Joesph. He actually doesn't want surgery and would like to try to avoid it. I think injections of steroid could be helpful but I would like to see a repeat MRI as his pain is more with reaching than with abduction. Once he has obtained the MRI he will return to see me. Orders: Orders MR shoulder LT wo con Today M75.122 - Complete rotator cuff tear or rupture of left shoulder, not specified as traumatic Coding Level of Care Code Est Pt Level 4 (52667) Diagnoses Complete rotator cuff tear of left shoulder M75.122
== END 2023-12-15 12:48 | disposition home or self-care (01) ==
PROVIDERS: PCP Internal Medicine; Visit Provider Orthopaedic Surgery
DX: M75.122 Complete rotator cuff tear or rupture of left shoulder, not specified as traumatic (principal)
CPT/HCPCS: 99214

== ENCOUNTER → 2023-12-15 12:05 | Outpatient (BNVA) | payer MEDICARE, SELFPAY | PROVIDERS: PCP Internal Medicine; Visit Provider Orthopaedic Surgery | DX: M75.122 Complete rotator cuff tear or rupture of left shoulder, not specified as traumatic (principal) | CPT/HCPCS: 99212 ==

== ENCOUNTER 2024-01-08 08:58 | Outpatient (REF) | payer MEDICARE, SELFPAY ==
--- NOTE | ~2024-01-08 | MR_ITS ---
EXAMINATION: MR SHOULDER WITHOUT CONTRAST, LEFT CLINICAL INFORMATION: Complete rotator cuff tear. COMPARISON: X-ray left shoulder February 2023. MRI left shoulder October 2022. TECHNIQUE: MRI of the shoulder without contrast was performed on a high-field scanner. FINDINGS: ROTATOR CUFF: There are postoperative changes related to prior rotator cuff surgery with metallic artifact present within the proximal humerus related to the surgery. Supraspinatus and Infraspinatus: There is a full-thickness insertional tear involving the entire supraspinatus tendon and the anterior infraspinatus tendon. The tear results in tendon retraction back to the level of the AC joint resulting in a tendon gap measuring 5 cm transverse and 5.3 cm AP. There is [id number] atrophy and moderate fatty infiltration of the supraspinatus muscle and a portion of the infraspinatus muscle. Rotator cuff tear has significantly increased in size compared with the prior preoperative MRI. The atrophy and fatty infiltration is also new. Mild heterogeneity of the remaining more posterior infraspinatus compatible with tendinosis. Teres Minor: Severe atrophy and fatty infiltration of the teres minor muscle, unchanged. Tendon intact. BICEPS: The biceps tendon is torn proximally and retracted distally seen distal to the level of the bicipital groove, similar to prior. CORACOACROMIAL ARCH: The undersurface of the acromion is curved with no subacromial spur. 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 There is a large joint effusion which has increased compared to prior. BURSA: There is increased fluid extending into the subacromial-subdeltoid bursa related to the rotator cuff tear. Possible 4 mm loose body in the lateral aspect of the bursa deep to the deltoid. LABRUM/CAPSULE: There is some persistent heterogeneity along the base of the posterior labrum less evident compared to prior which could reflect postsurgical result and/or persistent nondisplaced tearing of the labral base. GLENOHUMERAL JOINT/MARROW: There is nonuniform but primarily high-grade cartilage loss noted in the humeral head articular surface and most of the glenoid indicative of severe osteoarthritis. Subchondral sclerosis is also noted. Marginal osteophytes along the inferior aspect of the humeral head. This degenerative change is significantly progressed compared with the prior exam. There is a joint effusion and synovitis. MR/MR shoulder LT wo con IMPRESSION: 1. Postsurgical changes related to prior rotator cuff surgery. 2. Large full-thickness insertional tear/recurrent tear involving the entire supraspinatus tendon and anterior infraspinatus tendon. The tear has increased in size compared with the prior MRI October 2022. 3. Severe atrophy and fatty infiltration of the supraspinatus and a portion of the infraspinatus muscle. This is new compared to prior. 4. Severe atrophy and fatty infiltration of the teres minor muscle, unchanged. 5. Severe osteoarthritis of the acromioclavicular joint. 6. Severe osteoarthritis of the glenohumeral joint, with the osteoarthritis progressed compared with the prior exam. 7. Tear of the proximal biceps tendon with distal retraction similar to prior. Electronically signed by: Pawel Flynn MD 01/11/2024 10:21 PM EDT
== END 2024-01-08 08:59 | disposition home or self-care (01) ==
LOC: HO.MRI 08:58
PROVIDERS: PCP Internal Medicine; Visit Provider Orthopaedic Surgery
DX: M75.122 Complete rotator cuff tear or rupture of left shoulder, not specified as traumatic (principal)
CPT/HCPCS: 73221

== ENCOUNTER 2024-01-26 09:16 | Outpatient (AMB) | payer MEDICARE, SELFPAY ==
--- NOTE | 2024-01-26 09:17 | MHC.OFFVIS ---
Vital Signs 01/26/24 09:18 Height 5 ft 5 in Weight 160 lb BMI 26.6 Intake Visit Reasons: OV- Shoulder LT MRI-Review Intake Note: Joesph is an 83 year old left hand dominant male presents today for an MRI review of his right shoulder. IMPRESSION: 1. Postsurgical changes related to prior rotator cuff surgery. 2. Large full-thickness insertional tear/recurrent tear involving the entire supraspinatus tendon and anterior infraspinatus tendon. The tear has increased in size compared with the prior MRI October 2022. 3. Severe atrophy and fatty infiltration of the supraspinatus and a portion of the infraspinatus muscle. This is new compared to prior. 4. Severe atrophy and fatty infiltration of the teres minor muscle, unchanged. 5. Severe osteoarthritis of the acromioclavicular joint. 6. Severe osteoarthritis of the glenohumeral joint, with the osteoarthritis progressed compared with the prior exam. 7. Tear of the proximal biceps tendon with distal retraction similar to prior. Allergies No Known Allergies Allergy (Verified 12/15/23 12:07) HPI HPI OV- Shoulder LT MRI-Review: Details: Joesph is an 83 year old left hand dominant male presents today for an MRI review of his right shoulder. He has pain with driving activities. He is left-hand dominant. He does play golf successfully and this is not an issue for him. He had surgery proximally year ago with Dr. Payton and an MRI was obtained and he comes back for review today. [facility] Medical History Erectile dysfunction Elevated cholesterol Back pain Scoliosis Hx of osteoarthritis Surgical History Hx of neck surgery History of back surgery History of carpal tunnel release History of esophagogastroduodenoscopy (EGD) H/O colonoscopy History of back surgery Social History Household Members: Spouse Housing: House Are you a primary acute care assistant to a significant other at home: No Do you presently have visiting nurse or other home services: No Patient Tobacco Use Status: Never used Tobacco Current occupational status: retired Current occupation: left hand Physical Exam Vital Signs: BMI result Body Mass Index 26.6 Extrem Other: 4-/5 empty can Results Reviewed Results Reviewed: I personally reviewed the MR images. IMPRESSION: 1. Postsurgical changes related to prior rotator cuff surgery. 2. Large full-thickness insertional tear/recurrent tear involving the entire supraspinatus tendon and anterior infraspinatus tendon. The tear has increased in size compared with the prior MRI October 2022. 3. Severe atrophy and fatty infiltration of the supraspinatus and a portion of the infraspinatus muscle. This is new compared to prior. 4. Severe atrophy and fatty infiltration of the teres minor muscle, unchanged. 5. Severe osteoarthritis of the acromioclavicular joint. 6. Severe osteoarthritis of the glenohumeral joint, with the osteoarthritis progressed compared with the prior exam. 7. Tear of the proximal biceps tendon with distal retraction similar to prior. Assessment & Plan Assessment & Plan (1) Rotator cuff tear arthropathy of left shoulder: Code(s): M75.102 - Unspecified rotator cuff tear or rupture of left shoulder, not specified as traumatic; M12.812 - Other specific arthropathies, not elsewhere classified, left shoulder Category: Medical Plan: 83-year-old gentleman with rotator cuff arthropathy. I reviewed his MRI findings and the diagnosis and prognosis. I discussed surgical and nonsurgical treatment options. After review he would like to pursue injections in his shoulder. This was done. He may follow up as needed. Coding Level of Care Code Est Pt Level 4 (31776) Diagnoses Rotator cuff tear arthropathy of left shoulder M75.102; M12.812
[2024-01-26 09:18] VITALS: BMI 26.6
== END 2024-01-26 11:49 | disposition home or self-care (01) ==
PROVIDERS: PCP Internal Medicine; Visit Provider Orthopaedic Surgery
DX: M75.102 Unspecified rotator cuff tear or rupture of left shoulder, not specified as traumatic (principal); M12.812 Other specific arthropathies, not elsewhere classified, left shoulder
CPT/HCPCS: 20610; 99214

== ENCOUNTER → 2024-01-26 09:16 | Outpatient (BNVA) | payer MEDICARE, SELFPAY | PROVIDERS: PCP Internal Medicine; Visit Provider Orthopaedic Surgery | DX: M75.102 Unspecified rotator cuff tear or rupture of left shoulder, not specified as traumatic (principal); M12.812 Other specific arthropathies, not elsewhere classified, left shoulder | CPT/HCPCS: 20610; 99212; J0665; J1100 ==

== ENCOUNTER 2024-02-26 11:24 | Outpatient (AMB) | payer MEDICARE, SELFPAY ==
--- NOTE | 2024-02-26 11:26 | MHC.OFFVIS ---
Intake Visit Reasons: Tel- left shoulder, discuss injection Intake Note: Joesph is an 83 year old left hand dominant male who presents today VIA Telephone to follow up on his left shoulder rotator cuff arthropathy, at his last visit surgical vs non surgical treatment options were discussed including injections. . Allergies No Known Allergies Allergy (Verified 02/26/24 11:29) HPI HPI Tel- left shoulder, discuss injection: Details: Joesph is an 83 year old left hand dominant male who presents today VIA Telephone to follow up on his left shoulder rotator cuff arthropathy, at his last visit surgical vs non surgical treatment options were discussed including injections. . PFSH Medical History Erectile dysfunction Elevated cholesterol Back pain Scoliosis Hx of osteoarthritis Surgical History Hx of neck surgery History of back surgery History of carpal tunnel release History of esophagogastroduodenoscopy (EGD) H/O colonoscopy History of back surgery Social History Household Members: Spouse Housing: House Are you a primary childcare center administrator to a significant other at home: No Do you presently have visiting nurse or other home services: No Patient Tobacco Use Status: Never used Tobacco Current occupational status: retired Current occupation: left hand Telehealth Telehealth Telehealth Platform: Telephone Location of provider rendering services: practice address Location of patient: address on file Patient Identification confirmed using: Name, : Yes Telehealth method: voice only Patient verbally consented to treatment: Yes Patient verbally consented to billing insurance company: Yes Patient informed of any privacy concerns related to visit: Yes Minutes spent on Phone/Video with Pt.: 10 Assessment & Plan Assessment & Plan (1) Rotator cuff tear arthropathy of left shoulder: Code(s): M75.102 - Unspecified rotator cuff tear or rupture of left shoulder, not specified as traumatic; M12.812 - Other specific arthropathies, not elsewhere classified, left shoulder Category: Medical Plan: Joesph and I discussed the role of surgery and platelet rich plasma injections. At this time, after a thorough discussion of the options, he would like to pursue PRP injections. I will refer him to . Coding Level of Care Code Tele Est Pt Level 4 (37146) Diagnoses Rotator cuff tear arthropathy of left shoulder M75.102; M12.812
== END 2024-02-26 11:56 | disposition home or self-care (01) ==
LOC: HO.HOS 11:24
PROVIDERS: PCP Internal Medicine; Visit Provider Orthopaedic Surgery
DX: M75.102 Unspecified rotator cuff tear or rupture of left shoulder, not specified as traumatic (principal); M12.812 Other specific arthropathies, not elsewhere classified, left shoulder
CPT/HCPCS: 99441

== ENCOUNTER → 2024-02-26 11:24 | Outpatient (BNVA) | payer MEDICARE, SELFPAY | PROVIDERS: PCP Internal Medicine; Visit Provider Orthopaedic Surgery ==

== ENCOUNTER 2024-03-04 11:15 | Outpatient (AMB) | payer MEDICARE, SELFPAY ==
[2024-03-04 11:32] VITALS: BP 120/60; PULSE 58; RESP 14; O2SAT 98; BMI 24.6
--- NOTE | 2024-03-04 11:32 | MHC.OFFVIS ---
Vital Signs 03/04/24 11:32 Height 5 ft 5 in Weight 148 lb BMI 24.6 BP 120/60 Blood Pressure Location Rt brachial Position Sitting Respiration 14 Pulse 58 Pulse Source Pulse Oximeter Pulse Oximetry (%) 98 Oxygen Delivery Method Room Air Intake Visit Reasons: Unspecified rotator cuff tear/rupture of lt should Allergies No Known Allergies Allergy (Verified 03/04/24 11:33) Medication List - Last Reconciled 03/04/24 by Rima Viveros LPN acetaminophen 500 mg PO Q4H PRN omeprazole 20 mg PO DAILY HPI HPI Unspecified rotator cuff tear/rupture of lt should: Details: 83-year-old male who presents today to the office for unspecified rotator cuff tear/rupture. He has a history of a minimally invasive L4-5 lumbar fusion to address right lumbar radiculopathy in the setting of a lumbar degenerative scoliosis in December of 2022. He also underwent L4-5 oblique lumbar interbody fusion in early 2022. He continued to experience left shoulder weakness after undergoing partial rotator cuff repair surgery on 02/10/2023. He does have chronic rotator cuff tearing of the anterior half of his supraspinatus, which was not able to be repaired during his surgery. He has good passive range of motion and states that he still feels significantly weak when actively using his arm. He reports intermittent weakness when lifting his left hand above shoulder height. He has pain with driving activities. He does play golf successfully, and this is not an issue for him. He has completed physical therapy. He states that he would be interested in undergoing left-reverse total shoulder replacement surgery if indicated. He has no history of diabetes mellitus. He is going back to [place] on March 22, 2024. [facility] Medical History Erectile dysfunction Elevated cholesterol Back pain Scoliosis Hx of osteoarthritis Surgical History Hx of neck surgery History of back surgery History of carpal tunnel release History of esophagogastroduodenoscopy (EGD) H/O colonoscopy History of back surgery Social History Household Members: Spouse Housing: House Are you a primary manager respiratory care to a significant other at home: No Do you presently have visiting nurse or other home services: No Patient Tobacco Use Status: Never used Tobacco Current occupational status: retired Current occupation: left hand Review of Systems Const All systems reviewed & are unremarkable except as noted in HPI and below Physical Exam Vital Signs: Last Vital Signs Pulse 58 03/04/24 11:32 Resp 14 03/04/24 11:32 BP 120/60 03/04/24 11:32 Pulse Ox 98 03/04/24 11:32 Oxygen Delivery Method Room Air 03/04/24 11:32 BMI result Body Mass Index 24.6 General: Appears afebrile. Alert and oriented. Mood and affect appropriate. Follows and participates in conversation appropriately. Respiratory effort is unlabored. Able to transition from sit to stand unassisted. Ambulates with bilaterally normal heel strike and toe off. Results Reviewed Results Reviewed: No imaging is available for review. Assessment & Plan Assessment & Plan (1) Chronic shoulder pain: Code(s): M25.519 - Pain in unspecified shoulder; G89.29 - Other chronic pain Category: Medical (2) Rotator cuff tear arthropathy of left shoulder: Code(s): M75.102 - Unspecified rotator cuff tear or rupture of left shoulder, not specified as traumatic; M12.812 - Other specific arthropathies, not elsewhere classified, left shoulder Category: Medical Plan I had a long discussion with him about the benefits of PRP. We talked about the fact that given his extent of injuries and potential targets he will require several rounds of treatment without much of a guarantee about whether it would be helpful. Given that scenario, he opted to go with a combination of low dose steroid injections and peripheral nerve stimulation of the suprascapular nerve as a first step. I will schedule him for a left suprascapular nerve stimulator trial. We went over the details of the procedure and provided him with the brochure for the same. Discussed the risks and benefits of the procedure with the patient in detail. All questions were answered. The patient is on board with the plan. Justification for interventional therapy: .? Patient with average pain > 6/10 ? Patient has exhausted conservative therapy. ? Patient unable to tolerate physical therapy due to pain. . Patient has a good understanding of their pain condition and has appropriate mental and social support Scribed for Dr. Phillips by Reggie Arroyo, medical accounting clerk, on 03/04/2024. I, Dr. Phillips, have personally reviewed and agree with the information entered by the scribe. Coding Level of Care Code New Pt Level 4 (87295) Diagnoses Chronic shoulder pain M25.519; G89.29 Rotator cuff tear arthropathy of left shoulder M75.102; M12.812
== END 2024-03-04 12:15 | disposition home or self-care (01) ==
LOC: HO.PMC 11:15
PROVIDERS: PCP Internal Medicine; Visit Provider Internal Medicine
DX: M25.519 Pain in unspecified shoulder (principal); G89.29 Other chronic pain; M75.102 Unspecified rotator cuff tear or rupture of left shoulder, not specified as traumatic; M12.812 Other specific arthropathies, not elsewhere classified, left shoulder
CPT/HCPCS: 99204

== ENCOUNTER → 2024-03-04 11:15 | Outpatient (BNVA) | payer MEDICARE, SELFPAY | PROVIDERS: PCP Internal Medicine; Visit Provider Internal Medicine | DX: M75.102 Unspecified rotator cuff tear or rupture of left shoulder, not specified as traumatic (principal); M12.812 Other specific arthropathies, not elsewhere classified, left shoulder; G89.29 Other chronic pain | CPT/HCPCS: 99202 ==

== ENCOUNTER 2024-03-21 06:13 | Outpatient (REF) | payer MEDICARE, SELFPAY | END 2024-03-21 06:14 | disposition home or self-care (01) | LOC: CF 06:13 | PROVIDERS: Visit Provider Internal Medicine | DX: M75.102 Unspecified rotator cuff tear or rupture of left shoulder, not specified as traumatic (principal); M12.812 Other specific arthropathies, not elsewhere classified, left shoulder | CPT/HCPCS: 64555; C1778; J2003 ==

== ENCOUNTER 2024-03-21 08:49 | Outpatient (AMB) | payer MEDICARE, SELFPAY ==
[2024-03-21 08:57] VITALS: BP 119/71; PULSE 70; O2SAT 98
--- NOTE | 2024-03-21 08:57 | MHC.OFFVIS ---
Vital Signs 03/21/24 08:57 03/21/24 09:39 BP 119/71 135/73 Blood Pressure Location Lt brachial Lt brachial Position Sitting Sitting Pulse 70 62 Pulse Source Pulse Oximeter Pulse Oximeter Pulse Oximetry (%) 98 98 Oxygen Delivery Method Room Air Room Air Intake Visit Reasons: Left suprascapular Sprint Allergies No Known Allergies Allergy (Verified 03/04/24 11:33) HPI HPI Left suprascapular Sprint: Details: Patient presents for scheduled procedure. Denies any recent cough, cold, infection, fever or other significant changes in medical history since last office visit. [facility] Medical History Erectile dysfunction Elevated cholesterol Back pain Scoliosis Hx of osteoarthritis Surgical History Hx of neck surgery History of back surgery History of carpal tunnel release History of esophagogastroduodenoscopy (EGD) H/O colonoscopy History of back surgery Social History Household Members: Spouse Housing: House Are you a primary healthcare administrator to a significant other at home: No Do you presently have visiting nurse or other home services: No Patient Tobacco Use Status: Never used Tobacco Current occupational status: retired Current occupation: left hand Physical Exam Vital Signs: Last Vital Signs Pulse 62 03/21/24 09:39 BP 135/73 03/21/24 09:39 Pulse Ox 98 03/21/24 09:39 Oxygen Delivery Method Room Air 03/21/24 09:39 Office Procedures Details: Peripheral Nerve Stimulation Temporary Lead Placement, Fluoroscopy-Guided, Suprascapular Nerve, Left ? After the risks, benefits and alternatives were discussed with the patient and informed consent was obtained, patient was placed in the sitting position and padded to foster comfort. Appropriate skin and bony landmarks were identified using fluoroscopy, including the left suprascapular notch. The skin overlying the needle entry site was prepped and draped in sterile fashion. After identifying and marking the intended target along the course of the suprascapular nerve, the skin around the planned entry point and the subcutaneous tissues were injected with local anesthetic. An introducer needle and stimulating probe were assembled, inserted and advanced along the intended course of the suprascapular nerve, taking care to maintain the proper depth of insertion as the introducer was advanced under fluoroscopy guidance. Bony contact was achieved with the scapula and maintained throughout. The introducer needle was delivered to a location in proximity to the nerve. Multiple stimulation parameters were used to deliver stimulation to the suprascapular nerve in concert with stimulating at multiple positions around the nerve. Nerve target acquisition was confirmed noting generation of sensory and mild motor effects (paresthesia, muscle tension, etc) in the shoulder and proximal arm; corresponding to the distribution of the suprascapular nerve. Various electrical parameter combinations were tested, and the lead location was adjusted (physically relocated under image guidance) until the patient indicated shoulder paresthesia and tension overlapping the distribution of the patient?s typical region of pain. The stimulating probe was removed from the introducer and a percutaneous lead was guided through the needle and delivered to a location in similar proximity to the nerve. Final location was verified with electrical stimulation and documented. The introducer needle was removed, and the exposed end of the percutaneous lead was attached to an external stimulator unit. Various electrical parameter combinations were again tested until the patient indicated paresthesia and muscle tension overlapping the distribution of the patient?s typical region of pain. After confirming that lead impedance was in the normal range, the external unit was detached, the needle was removed, and the lead was anchored at the skin. The needle entry site was occluded with dermabond. The lead was threaded into the connector block and electrical continuity and desired patient response was confirmed. The connector block was attached to the external stimulator unit. The site was covered with a sterile occlusive dressing.? A final image was taken to document final placement. The patient was observed for stability of vital signs and comfort. Sprint PNS Device: Sprint PNS Device [id number] Percutaneous Peripheral Neuroelectrode Procedure: 10494 - Percutaneous Peripheral Neuroelectrode Procedure code (CPT) selection complete Office Meds lidocaine HCl 10 mg/mL (1 %) injection solution Performing Provider: Elisabeth Sanabria APRN, CORPORATE GENERAL MANAGER Performing Location: [facility] Administered by: Rima Viveros LPN on 03/21/24 09:25 Dose Route Admin Location Dispensed Lot Number Expiration Date NDC Assembler Product 5 mL subcut 5 mL Assessment & Plan Assessment & Plan (1) Rotator cuff tear arthropathy of left shoulder: Code(s): M75.102 - Unspecified rotator cuff tear or rupture of left shoulder, not specified as traumatic; M12.812 - Other specific arthropathies, not elsewhere classified, left shoulder Category: Medical (2) Chronic shoulder pain: Code(s): M25.519 - Pain in unspecified shoulder; G89.29 - Other chronic pain Category: Medical Plan Patient is status post temporary left suprascapular nerve stimulator placement. Patient tolerated procedure well and was discharged home in stable condition with discharge instructions. All questions were answered. We will follow-up via telephone or in clinic to assess response to therapy. A follow-up appointment was made during today's visit. Orders: Orders [place] guidance in treatment room Today M25.512 - Pain in left shoulder AMB Sprint PNS Today M25.512 - Pain in left shoulder Coding Level of Care Code Procedure Only Diagnoses Rotator cuff tear arthropathy of left shoulder M75.102; M12.812 Chronic shoulder pain M25.519; G89.29 CPT Codes Sprint PNS - Sprint PNS Device: Sprint PNS Device ([id number]) Sprint PNS - SPRINT: 78622 - Percutaneous Peripheral Neuroelectrode ([id number]) Implantable Device Implantable Device Implantable Devices Qty Assembler Product Implant Date Expiration Date Analgesic PENS system 1 [employer] 03/21/24 03/13/25 Bone-screw internal spinal fixation system, non-sterile 2 [employer] 12/19/22 Bone-screw internal spinal fixation system, non-sterile 4 [employer] 12/19/22 FIBERS OSTEOAMP SELECT 5CC 1 12/19/22 08/04/27 FLOWABLE OSTEOAMP SELECT 10CC 1 12/19/22 08/10/25 Metallic spinal interbody fusion cage 1 [employer] 12/19/22 08/16/24 SCREW CTL [id number] 12/19/22 Tendon/ligament bone anchor, non-bioabsorbable 1 [employer] 02/10/23 11/18/26
[2024-03-21 09:39] VITALS: BP 135/73; PULSE 62; O2SAT 98
== END 2024-03-21 09:47 | disposition home or self-care (01) ==
LOC: HO.PMCPRC 08:49
PROVIDERS: PCP Internal Medicine; Visit Provider Internal Medicine
DX: M75.102 Unspecified rotator cuff tear or rupture of left shoulder, not specified as traumatic (principal); M12.812 Other specific arthropathies, not elsewhere classified, left shoulder; M25.519 Pain in unspecified shoulder; G89.29 Other chronic pain
CPT/HCPCS: 64555

== ENCOUNTER 2024-03-29 10:30 | Outpatient (AMB) | payer MEDICARE, SELFPAY ==
--- NOTE | 2024-03-29 10:32 | A.OFFVIS_ITS ---
Vital Signs 03/29/24 10:33 Height 5 ft 5 in Weight 145 lb BMI 24.1 BP 144/79 H Blood Pressure Location Lt brachial Position Sitting Respiration 16 Pulse 62 Pulse Source Pulse Oximeter Pulse Oximetry (%) 93 Oxygen Delivery Method Room Air Intake Visit Reasons: s/p left suprascapular Sprint Allergies No Known Allergies Allergy (Verified 03/29/24 10:34) Medication List - Last Reconciled 03/29/24 by Rima Viveros LPN acetaminophen 500 mg PO Q4H PRN omeprazole 20 mg PO DAILY HPI HPI s/p left suprascapular Sprint: Details: 83-year-old male who presents to the office today status post left temporary suprascapular nerve stimulator placement. While in the office today, he reports symptoms secondary to over stimulation of the left shoulder region. He states the pain does not interfere his sleep and sleeps 6-8 hours a night. He states he will be traveling to [place] in May 2024. Past Procedure: 03/21/24: Temporary left suprascapular nerve stimulator placement: Mild initial relief. [facility] Medical History Erectile dysfunction Elevated cholesterol Back pain Scoliosis Hx of osteoarthritis Surgical History Hx of neck surgery History of back surgery History of carpal tunnel release History of esophagogastroduodenoscopy (EGD) H/O colonoscopy History of back surgery Social History Household Members: Spouse Housing: House Are you a primary director of critical care to a significant other at home: No Do you presently have visiting nurse or other home services: No Patient Tobacco Use Status: Never used Tobacco Current occupational status: retired Current occupation: left hand Review of Systems Const All systems reviewed & are unremarkable except as noted in HPI and below Physical Exam Vital Signs: Last Vital Signs Pulse 62 03/29/24 10:33 Resp 16 03/29/24 10:33 BP 144/79 H 03/29/24 10:33 Pulse Ox 93 03/29/24 10:33 Oxygen Delivery Method Room Air 03/29/24 10:33 BMI result Body Mass Index 24.1 General: Appears afebrile. Alert and oriented. Mood and affect appropriate. Follows and participates in conversation appropriately. Respiratory effort is unlabored. Able to transition from sit to stand unassisted. Ambulates with bilaterally normal heel strike and toe off. Lead insertion site is clean dry and intact. The dressing was changed in the office today. Results Reviewed Results Reviewed: No imaging is available for review. Assessment & Plan Assessment & Plan (1) Chronic shoulder pain: Code(s): M25.519 - Pain in unspecified shoulder; G89.29 - Other chronic pain Category: Medical (2) Rotator cuff tear arthropathy of left shoulder: Code(s): M75.102 - Unspecified rotator cuff tear or rupture of left shoulder, not specified as traumatic; M12.812 - Other specific arthropathies, not elsewhere classified, left shoulder Category: Medical Plan Patient is status post temporary left suprascapular nerve stimulator placement. He has been running the device set up fairly high setting and that has resulted in slight over stimulation off his left trapezius and deltoid muscles, leading to pain and discomfort. Educated the patient about optimal usage of the device. We also discussed potential permanent stimulator trial if Sprint is not helpful. His removal date is going to be in May and he will be in [place] at the time. I discussed that he reach out to the sprint team to find a provider there to help remove it. Patient expressed understanding and is in agreement with the plan. Scribed for Dr. Phillips by Terell Hanson, medical sociologist, on 03/29/2024.? I, Dr. Phillips, have personally reviewed and agree with the information entered by the scribe. Coding Level of Care Code Est Pt Level 3 (90016) Procedure Only Diagnoses Chronic shoulder pain M25.519; G89.29 Rotator cuff tear arthropathy of left shoulder M75.102; M12.812
[2024-03-29 10:33] VITALS: BP 144/79; PULSE 62; RESP 16; O2SAT 93; BMI 24.1
== END 2024-03-29 11:04 | disposition home or self-care (01) ==
PROVIDERS: PCP Internal Medicine; Visit Provider Internal Medicine
DX: M25.519 Pain in unspecified shoulder (principal); G89.29 Other chronic pain; M75.102 Unspecified rotator cuff tear or rupture of left shoulder, not specified as traumatic; M12.812 Other specific arthropathies, not elsewhere classified, left shoulder
CPT/HCPCS: 99024

== ENCOUNTER → 2024-03-29 10:30 | Outpatient (BNVA) | payer MEDICARE, SELFPAY | PROVIDERS: PCP Internal Medicine; Visit Provider Internal Medicine | DX: M25.512 Pain in left shoulder (principal); G89.29 Other chronic pain; M75.102 Unspecified rotator cuff tear or rupture of left shoulder, not specified as traumatic; M12.812 Other specific arthropathies, not elsewhere classified, left shoulder | CPT/HCPCS: 99212 ==

== ENCOUNTER → 2024-05-17 08:16 | Outpatient (BNVA) | payer MEDICARE, SELFPAY | PROVIDERS: PCP Internal Medicine; Visit Provider Internal Medicine ==

== ENCOUNTER 2024-11-18 11:07 | Outpatient (AMB) | payer MEDICARE, SELFPAY ==
--- OUTSIDE RECORDS SUMMARY | 2020-07-15 04:30 | XMS_ITS | Continuity of Care Document ---
Author Organization [facility] Address [address] [place] [address] Phone Care Team Providers Care Financial Manager Name Role Phone Parker Spring MD Unavailable [...] No Longer Active Procedures Procedure Date Office/outpatient visit,[facility] 2020 Advance Directives Directive Yes / [...] & Sports Medicine, [address], [place], [place], [address], tel:[phone] [facility] 400 right ankle pain (chief complaint) Acute right ankle painPrimary osteoarthritis of right ankle Clementine Canales. [address], [place], [place], [address] , . tel:[phone] Referring Provider: Parker Spring MD D, [address], [place], [address] . tel:[phone] Family History Family Member Type Diagnosis Age At Onset Problem (finding) Family history of Cance r Payers Payer name Insurance type Covered alliance party ID Authoriza tion(s) MEDICARE MB [id number] BCBS PPO OUT OF STATE [id number] Social History Type Description Quantity Date Captured [...] Mental Status Date Cognitive Assessment Orientation - [place] ed to time, place, person, situation. Patient Care Teams Name Effective Dates (start - stop) Status Members No Information
--- NOTE | 2024-11-18 11:32 | A.SPINEOV_ITS ---
Intake Visit Reasons: worsening back pain/can barely stand Intake Note: Mr. Guy is here today c/c worsening back pain. 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 He is a gentleman with multiple previous lumbar spine surgeries, status post L4-5 trans Kambin interbody fusion about 2 years ago which did give him relief of his leg pain. He has had chronic low back pain for many many years dating back to before his fusion surgery. He reports that over the last year or so he has had a significant increase in the pain right along the waistline just above his beltline that crosses bilaterally. It was going down to his right leg for time but that went away after some massage therapy. He takes a leave most days to help deal with it, especially when he is active. When he sits down the pain is completely gone. As he gets to stand up and start walking, he will be in a flexed posture and the back pain will be particularly bad. If he leans up against something to straight in his spine out it seems to take it down to a level where it is much more manageable. Things like yd work and golf though are quite difficult. On exam, he walks with a flexed posture, he has multiple well-healed scars in his low back and identifies the pain is localizing to the area beneath where his stab incisions are from his fusion surgery. Strength and reflexes are normal. I am going to start with a plain x-rays standing flexion-extension and follow that with a lumbar MRI to evaluate what might be going on. I would like to see him back once it is completed. 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
== END 2024-11-18 11:58 | disposition home or self-care (01) ==
LOC: HO.HNS 11:08
PROVIDERS: PCP Internal Medicine; Visit Provider Physician Assistant
DX: M51.360 Other intervertebral disc degeneration, lumbar region with discogenic back pain only (principal); M41.50 Other secondary scoliosis, site unspecified
CPT/HCPCS: 99213

== ENCOUNTER 2024-11-18 11:07 | Outpatient (REF) | payer MEDICARE, SELFPAY ==
--- NOTE | ~2024-11-18 | XR_ITS ---
EXAMINATION: X-ray lumbar spine. CLINICAL INFORMATION: Other secondary to scoliosis. TECHNIQUE: AP and lateral views. Lateral views during flexion and extension position. COMPARISON: August 29, 2023. FINDINGS: Dextroconvex rotoscoliosis at the thoracolumbar spine. Levoconvex rotoscoliosis in the lumbar spine. Multilevel endplate sclerosis marginal osteophyte formation and decreased intervertebral disc height. Metallic hardware with transpedicular screws bilaterally at L4-5 levels and intervertebral disc spacer L4-5. No gross malalignment in neutral nor flexion and/or extension position. No lytic or blastic lesions XR/XR lumbar spine 4V min IMPRESSION: No acute fracture or trauma-related listhesis or instability. Rotoscoliosis, thoracolumbar spine. Stable post surgical changes/hardware L4-5. Electronically signed by: Renard Manuel MD 11/18/2024 01:06 PM EDT
== END 2024-11-18 11:08 | disposition home or self-care (01) ==
LOC: HO.HOSX 11:07
PROVIDERS: PCP Internal Medicine; Visit Provider Physician Assistant
DX: M54.50 Low back pain, unspecified (principal); M41.50 Other secondary scoliosis, site unspecified
CPT/HCPCS: 72110; 99212

== ENCOUNTER → 2024-11-18 12:11 | Outpatient (BNV) | payer MEDICARE, SELFPAY | PROVIDERS: PCP Internal Medicine; Visit Provider Radiology Diagnostic Radiology | DX: M41.35 Thoracogenic scoliosis, thoracolumbar region (principal) | CPT/HCPCS: 72110 ==

== ENCOUNTER 2024-12-16 13:12 | Outpatient (AMB) | payer MEDICARE, SELFPAY ==
--- OUTSIDE RECORDS SUMMARY | 2020-07-15 04:30 | XMS_ITS | Continuity of Care Document ---
Author Organization [facility] Address [address] [place] [address] Phone Care Team Providers Care Senior Database Programmer Name Role Phone Parker Spring MD Unavailable [...] No Longer Active Procedures Procedure Date Office/outpatient visit,[facility] 2020 Advance Directives Directive Yes / No [...] Provider Providers Copied on Encounter Office/outpat ient visit,[facility], [address], [place], [place], [address], tel:[phone] [facility] 400 right ankle pain (chief complaint) Acute right ankle painPrimary osteoarthritis of right ankle Clementine Canales. [address], [address], [place], [place], [address] , . tel:[phone] Referring Provider: Parker Spring MD D, [address], [place], [address] . tel:[phone] Family History Family Member Type Diagnosis Age At Onset Problem (finding) Family history of Cance r Payers Payer name Insurance type Covered green party ID Authoriza tion(s) MEDICARE MB [id number] BCBS PPO OUT OF STATE [id number] Social History Type Description Quantity Date Captured [...] Mental Status Date Cognitive Assessment Orientation - [place] ed to time, place, person, situation. Patient Care Teams Name Effective Dates (start - stop) Status Members No Information
--- NOTE | 2024-12-16 13:37 | A.SPINEOV_ITS ---
Intake Visit Reasons: discuss MRI Intake Note: Mr. Guy is here today to discuss the results of his MRI. 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 Please refer to my last note for the specifics of his problem with back pain with walking, centered more over the left SI joint radiating across the lower back to the right side. His x-rays showed a persistent scoliotic curvature above his fusion construct. His MRI which was done at the [facility] does not show any evidence of acute disc herniation or fracture. As above there are degenerative scoliotic changes seen above the fusion. There is bilateral L5 foraminal stenosis as well, but he does not have any leg pain to report. I explained to him that this is going to take some investigating to figure out. He has had multiple previous back surgeries and this particular pain started after his lumbar fusion. Not directly after his lumbar fusion but evolved over time. It is known that the SI joint can have an adjacent segment type syndrome after lumbar fusion surgery and a lot of his symptoms localize him so as well to the SI joint, so I am going to have him undergo an injection in the left SI joint and see if we can figure out where this is coming from. If that does not help, then we have to consider that it could be the curvature above his fusion. I would like to review this with Dr. Aguirre and get his thoughts as well. Total amount of time spent in this visit was 20 minutes in discussion of symptoms, lumbar MRI and x-ray imaging results and subsequent plan of care Patric Aguirre MD,PhD [facility] Orders: Referrals Pain Management Referral G89.29 - Other chronic pain, M53.3 - Sacrococcygeal disorders, not elsewhere classified Coding Level of Care Code Est Pt Level 3 (97273) Diagnoses Chronic SI joint pain M53.3; G89.29
== END 2024-12-16 14:08 | disposition home or self-care (01) ==
LOC: HO.HNS 13:13
PROVIDERS: PCP Internal Medicine; Visit Provider Physician Assistant
DX: M53.3 Sacrococcygeal disorders, not elsewhere classified (principal); G89.29 Other chronic pain
CPT/HCPCS: 99213

== ENCOUNTER → 2024-12-16 13:12 | Outpatient (BNVA) | payer MEDICARE, SELFPAY | PROVIDERS: PCP Internal Medicine; Visit Provider Physician Assistant | DX: M53.3 Sacrococcygeal disorders, not elsewhere classified (principal); G89.29 Other chronic pain | CPT/HCPCS: 99212 ==

== ENCOUNTER 2025-01-17 08:56 | Outpatient (AMB) | payer MEDICARE, SELFPAY ==
--- OUTSIDE RECORDS SUMMARY | 2020-07-15 04:30 | XMS_ITS | Continuity of Care Document ---
Author Organization [facility] Address [address] [place] [address] Phone Care Team Providers Care Wind Technician Name Role Phone Parker Spring MD Unavailable [...] No Longer Active Procedures Procedure Date Office/outpatient visit,[facility] 2020 Advance Directives Directive Yes / [...] Provider Providers Copied on Encounter Office/outpat ient visit,[facility], [address], [place], [place], [address], tel:[phone] [facility] 400 right ankle pain (chief complaint) Acute right ankle painPrimary osteoarthritis of right ankle Clementine Canales. [address], [address], [place], [place], [address] , . tel:[phone] Referring Provider: Parker Spring MD D, [address], [place], [address] . tel:[phone] Family History Family Member Type Diagnosis Age At Onset Problem (finding) Family history of Cance r Payers Payer name Insurance type Covered democrat ID Authoriza tion(s) MEDICARE MB [id number] BCBS PPO OUT OF STATE [id number] Social History Type Description Quantity Date Captured [...] Mental Status Date Cognitive Assessment Orientation - [place] ed to time, place, person, situation. Patient Care Teams Name Effective Dates (start - stop) Status Members No Information
--- NOTE | 2025-01-17 09:03 | MHC.OFFVIS ---
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 The low back pain is described as an aching sensation in the lower back area that radiates down the left leg, with an intensity of 6 to 8 out of 10. The pain interferes with sleep and is alleviated by cold applications and oral medications. The patient has a history of multiple back surgeries, including an L4-5 oblique lumbar interbody fusion with pedicle screw placement in December 2022, and three other surgeries for arthritis and sciatica. The shoulder pain was previously managed with temporary nerve stimulation, which provided relief for about a month. The patient reports a lack of strength and occasional crunching sounds in the shoulder, but it is not currently painful. The patient experiences difficulty standing up straight after sitting and requires time to get moving in the morning. He reports pain across the lower back when walking or standing for extended periods, which is relieved by leaning against a wall or sitting down. The patient remains active, engaging in activities such as golf and property maintenance, but modifies his activities due to back issues. He uses Aleve occasionally for pain relief, particularly before golfing, but is cautious about its use. Pain Description - Onset and Timing: Chronic low back pain with radiation to the left leg, intensity 6-8/10. - Quality and Character: Aching sensation in the lower back. - Primary Location: Lower back, radiating down the left leg. - Exacerbating Factors: Standing or walking for extended periods. - Relieving Factors: Cold applications, oral medications, leaning against a wall, or sitting down. - Interference with Activities: Difficulty sleeping, standing up straight, and requires time to get moving in the morning. Physical Exam - Appears afebrile. - Alert and oriented. - Mood and affect appropriate. - Follows and participates in conversation appropriately. - Respiratory effort is unlabored. - Able to transition from sit to stand unassisted. - Ambulates with bilaterally normal heel strike and toe off. - Able to stand and walk on toes and heels. Pain Management - Affect: Pain impacts sleep and daily activities. - Analgesia: Uses Aleve occasionally for pain relief, particularly before golfing. - Adverse Effects: No adverse effects from Aleve reported. - Activities of Daily Living: Engages in golf and property maintenance, but modifies activities due to back issues. - Aberrant Drug Related Behaviors: None reported. [facility] Medical History Erectile dysfunction Elevated cholesterol Back pain Scoliosis Hx of osteoarthritis Surgical History Hx of neck surgery History of back surgery History of carpal tunnel release History of esophagogastroduodenoscopy (EGD) H/O colonoscopy History of back surgery Social History Household Members: Spouse Housing: House Are you a primary childbirth and infant care teacher to a significant other at home: No Do you presently have visiting nurse or other home services: No Patient Tobacco Use Status: Never used Tobacco Current occupational status: retired Current occupation: left hand Physical Exam Vital Signs: Last Vital Signs Pulse 65 01/17/25 09:05 Resp 16 01/17/25 09:05 BP 114/60 01/17/25 09:05 Pulse Ox 98 01/17/25 09:05 Oxygen Delivery Method Room Air 01/17/25 09:05 BMI result Body Mass Index 25.0 Assessment & Plan Assessment & Plan (1) 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 1. Low Back Pain/Postlaminectomy Syndrome - Consideration of surgical decompression and potential extension of fusion at L2-3 and L3-4 levels. - Discussion of spinal cord stimulation as an alternative if decompression is not pursued. - Diagnostic SI joint injection considered to assess contribution of SI joint to pain. 2. Shoulder Pain - Previous temporary nerve stimulation provided relief for a few month. - Currently not painful but lacks strength and has occasional crunching sounds. 3. Spinal Stenosis - Spinal stenosis identified as a source of pain during walking, requiring leaning forward for relief. - Consideration of surgical decompression at L2-3 and L3-4 levels to alleviate symptoms. 4. Sacroiliac Joint Pain - Diagnostic SI joint injection proposed to determine the contribution of SI joint to overall pain. - SI joint pain described as sharp and only intermittent. 5. Lumbar Disc Bulging - Disc bulging at L3-4 and L2-3 levels noted, contributing to nerve compression and pain. - Consideration of surgical intervention to address disc bulging and associated symptoms. 6. Scoliosis - Scoliosis noted as a complicating factor in spinal alignment and nerve compression. - Discussion of potential surgical intervention considering scoliosis impact on anatomy. Discussion Notes I discussed with the patient the potential for surgical decompression and extension of the fusion at L2-3 and L3-4 levels to address spinal stenosis and lumbar disc bulging. We also considered spinal cord stimulation as an alternative if decompression is not pursued. The possibility of a diagnostic SI joint injection was discussed to determine its contribution to the overall pain syndrome. I explained the intermittent nature of the SI joint pain and the limitations of the diagnostic injection in such cases. We will follow up with the spine team to discuss the feasibility of decompression and address any anatomical complexities due to scoliosis. Patient Instructions - Follow up with the spine team regarding potential decompression surgery. - Consider the option of spinal cord stimulation if decompression is not feasible. - Monitor pain levels and note any changes in symptoms. - Use Aleve sparingly and only as needed for pain relief. 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
[2025-01-17 09:05] VITALS: BP 114/60; PULSE 65; RESP 16; O2SAT 98; BMI 25.0
== END 2025-01-17 09:43 | disposition home or self-care (01) ==
LOC: HO.PMC 08:57
PROVIDERS: PCP Internal Medicine; Referring Provider Physician Assistant; Visit Provider Internal Medicine
DX: G89.29 Other chronic pain (principal); M53.3 Sacrococcygeal disorders, not elsewhere classified; M41.50 Other secondary scoliosis, site unspecified; Z98.1 Arthrodesis status
CPT/HCPCS: 99214

== ENCOUNTER → 2025-01-17 08:56 | Outpatient (BNVA) | payer MEDICARE, SELFPAY | PROVIDERS: PCP Internal Medicine; Referring Provider Physician Assistant; Visit Provider Internal Medicine | DX: M53.3 Sacrococcygeal disorders, not elsewhere classified (principal); M41.50 Other secondary scoliosis, site unspecified; Z98.1 Arthrodesis status; G89.29 Other chronic pain | CPT/HCPCS: 99212 ==

== ENCOUNTER 2025-01-24 11:03 | Outpatient (AMB) | payer MEDICARE, SELFPAY ==
--- NOTE | 2025-01-24 12:18 | HO.SPINEOV ---
Intake Visit Reasons: discuss possible differential diagnosis Intake Note: Mr. Guy is here today to Discuss possible different diagnosis. 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 Please refer to my previous notes for the specifics of his issues. His situation is somewhat complicated in that he has had 4 previous back surgeries, as well as an L4-5 trans Kambin lumbar interbody fusion done by Dr. Aguirre. He had great relief of his right leg pain after surgery, but has been troubled by persistent low back pain ever since. We had been trying to avoid more surgery, but unfortunately the symptoms he has had continued to advance. We consider it could be an SI joint problem but the symptoms were too intermittent in that area to explain all of his pain. At this point he really just can not stand and walk anymore. We had discussed at his original surgical consultation that he may require extension of the fusion up to treat his scoliosis. At this time, he feels as though he would like to have this treated. Dr. Aguirre met with him, reviewed his imaging done at [facility] and his x-rays done here at [place] and we have arranged for him to have an L2-3, L3-4 oblique lumbar interbody fusion with revision of posterior instrumentation. He understands because of his history of previous surgeries, that it is hard to give him a solid prediction for percentage of pain control, but at this point is the only thing left to try to help him as his life has become 1 day after another of severe pain and inability to function. He has been through conservative management in the form of [id number] medications like naproxen, Tylenol, muscle relaxers as well as postoperative PT. we have tentatively scheduled him for March 19. The patient was given risk and benefits of oblique lumbar interbody fusion surgery including but not limited to infection, hematoma, nerve injury, durotomy, weakness, bowel/bladder injury, persistent pain, and pseudoarthosis or instrumentation failure. We also discussed the option to continue with conservative treatment and patient wishes to proceed with surgery. They are aware they should stop NSAIDs 7 days prior to surgery. All questions were answered to the best of our ability. 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
== END 2025-01-24 12:43 | disposition home or self-care (01) ==
LOC: HO.HNS 11:04
PROVIDERS: PCP Internal Medicine; Visit Provider Physician Assistant
DX: M51.362 Other intervertebral disc degeneration, lumbar region with discogenic back pain and lower extremity pain (principal); M41.50 Other secondary scoliosis, site unspecified
CPT/HCPCS: 99213

== ENCOUNTER → 2025-01-24 11:03 | Outpatient (BNVA) | payer MEDICARE, SELFPAY | PROVIDERS: PCP Internal Medicine; Visit Provider Physician Assistant | DX: M47.9 Spondylosis, unspecified (principal); M41.50 Other secondary scoliosis, site unspecified; Z98.1 Arthrodesis status | CPT/HCPCS: 99212 ==

== ENCOUNTER 2025-03-18 09:44 | Inpatient (IN) | payer MEDICARE, SELFPAY ==
[2025-03-04 09:59] VITALS: BP 138/67; PULSE 55; RESP 16; O2SAT 99; BMI 24.7
--- NOTE | 2025-03-04 10:15 | HO.ANESPROP2 ---
Documented by User: Melia Patel NP 03/05/25 08:55 HPI - Anesthesia Eval Consult details Narrative: 84yo M for L2-3,L3-4 Oblique Lumbar Interbody Fusion w/Revision of instrumenation, 03/18/25 s/p TLIF 2022 with GA-ETT 7.5 No recent illness No CP/SOB with golf, yard work GERD: ppi controls Daily ETOH: 2-3 beers daily PMFSH Active Problems Active Problems: All Active Problems Chronic SI joint pain (Acute) Chronic shoulder pain (Acute) Rotator cuff tear arthropathy of left shoulder (Acute) Left shoulder pain (Acute) S/P spinal fusion (Acute) Scoliosis due to degenerative disease of spine in adult patient (Acute) Back pain of lumbar region with sciatica (Acute) Complete rotator cuff tear of left shoulder (Acute) Past Medical History Medical History Consumes three beers daily GERD (gastroesophageal reflux disease) Erectile dysfunction Elevated cholesterol Back pain Scoliosis Hx of osteoarthritis Family History Family history of problems with anesthesia: No Surgical History Surgical History Hx of repair of left rotator cuff (02/10/23) Hx of spinal surgery (12/19/22) Hx of neck surgery History of back surgery History of carpal tunnel release History of esophagogastroduodenoscopy (EGD) H/O colonoscopy History of back surgery History of Problems with Anesthesia: No Social History Social History Household Members: Spouse Housing: House Are you a primary lpn care manager to a significant other at home: No Do you presently have visiting nurse or other home services: No Patient Tobacco Use Status: Never used Tobacco Use of substances other than those prescribed or required for medical reasons: No Have you been hit, kicked, punched, or otherwise hurt by someone within the past year? 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 occupation: left hand Meds Allergies Allergy/AdvReac Type Severity Reaction Status Date / Time No Known Allergies Allergy Verified 01/24/25 12:20 Home Medications ?Medication ?Instructions ?Recorded ?Confirmed ?Last Taken ?Type omeprazole 20 mg tablet,delayed 40 mg PO DAILY 12/12/22 03/18/25 03/18/25 History release acetaminophen 500 mg tablet 1,000 mg PO BID PRN Pain 03/18/25 03/18/25 03/16/25 History Exam Height,Weight and Vital Signs: Height 5 ft 4 in Weight 65.2 kg Last Vital Signs Pulse 55 03/04/25 09:59 Resp 16 03/04/25 09:59 BP 138/67 03/04/25 09:59 Pulse Ox 99 03/04/25 09:59 O2 Del Method Room Air 03/04/25 09:59 Pertinent Lab Results Pertinent Lab Results: Lab Results 03/04/25 03/04/25 Range/Units 10: 10:39 WBC 5.2 (4.8-10.8) X10*3/uL RBC 4.72 (4.60-5.80) X10*6/uL Hgb 14.3 (14.0-18.0) g/dl Hct 43.1 (42.0-52.0) % MCV 91.3 (80.0-98.0) fL MCH 30.3 (27.0-33.0) pg MCHC 33.2 (31.0-36.0) g/dl RDW 14.1 (11.0-16.0) % Plt Count 254 (160-400) X10*3/uL MPV 9.9 (9.4-12.4) fL Absolute Nucleated RBC 0.000 (0.0-0.012) X10*3/uL Nucleated RBC % (auto) 0.0 (0.0-0.2) /100WBC Sodium 141 (135-145) mmol/L Potassium 4.5 (3.3-5.1) mmol/L Chloride 105 (96-108) mmol/L Carbon Dioxide 29 (22-29) mmol/L Anion Gap 12 (12-20) BUN 11 (9-16) mg/dL Creatinine 0.71 (0.5-1.4) mg/dL Estim Creat Clear Calc 67.1 Estimated GFR > 60 Random Glucose 98 (60-115) mg/dL Calcium 9.5 (8.4-10.2) mg/dL Blood Type O Positive Antibody Screen NEGATIVE Narrative Narrative: EKG 12/2022 Vent. Rate : 073 BPM ? ? Atrial Rate : 073 BPM ?? P-R Int : 132 ms? QRS Dur : 092 ms ? ? QT Int : 384 ms ? ? ? P-R-T Axes : 044 022 027 degrees ?? QTc Int : 423 ms ? Normal sinus rhythm Normal ECG When compared with ECG of 19-MAY-2005 11:18, No significant change was found Airway Mallampati Class: II TM Dist: >3cm Neck ROM: Full Loose/Missing/Broken Teeth: No Heart: RRR Lungs: CTAB Assessment and Plan Assessment Anesthesia Assessment: Anesthesia Plan Discussed and PAT Visit Final Anesthetic Review Family History of Problems with Anesthesia: No History of Problems with Anesthesia: No Documented by User: Emma Jarrell MD 03/18/25 12:23 [facility] Past Medical History Medical History Consumes three beers daily GERD (gastroesophageal reflux disease) Erectile dysfunction Elevated cholesterol Back pain Scoliosis Hx of osteoarthritis Surgical History Surgical History Hx of repair of left rotator cuff (02/10/23) Hx of spinal surgery (12/19/22) Hx of neck surgery History of back surgery History of carpal tunnel release History of esophagogastroduodenoscopy (EGD) H/O colonoscopy History of back surgery Social History Social History Household Members: Spouse Housing: House Are you a primary lpn care manager to a significant other at home: No Do you presently have visiting nurse or other home services: No Patient Tobacco Use Status: Never used Tobacco Use of substances other than those prescribed or required for medical reasons: No Have you been hit, kicked, punched, or otherwise hurt by someone within the past year? 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 occupation: left hand Meds Allergies Allergy/AdvReac Type Severity Reaction Status Date / Time No Known Allergies Allergy Verified 01/24/25 12:20 Home Medications ?Medication ?Instructions ?Recorded ?Confirmed ?Last Taken ?Type omeprazole 20 mg tablet,delayed 40 mg PO DAILY 12/12/22 03/18/25 03/18/25 History release acetaminophen 500 mg tablet 1,000 mg PO BID PRN Pain 03/18/25 03/18/25 03/16/25 History Assessment and Plan Final Anesthetic Review ASA Class: II Final Preanesthetic Review: Meds/Allgs Chart Reviewed, Consent Obtained/Reviewed and Anes Risks/Benef Reviewed Patient Risk: Low Procedure Risk: Intermediate Anesthetic Plan Anesthetic Plan: GA Disposition: Standard PACU
[2025-03-04 10:47] LABS: Hematocrit 43.1 % (42.0-52.0); Hemoglobin 14.3 g/dl (14.0-18.0); Mean Corpuscular HGB Conc 33.2 g/dl (31.0-36.0); Mean Corpuscular Hemoglobin 30.3 pg (27.0-33.0); Mean Corpuscular Volume 91.3 fL (80.0-98.0); NRBC Abs Auto 0.000 X10*3/uL (0.0-0.012); NRBC Pct Auto 0.0 /100WBC (0.0-0.2); Platelet Count 254 X10*3/uL (160-400); Red Blood Count 4.72 X10*6/uL (4.60-5.80); White Blood Count 5.2 X10*3/uL (4.8-10.8)
[2025-03-04 11:16] LABS: Anion Gap 12 (12-20); Blood Urea Nitrogen 11 mg/dL (9-16); Calcium 9.5 mg/dL (8.4-10.2); Carbon Dioxide 29 mmol/L (22-29); Chloride 105 mmol/L (96-108); Creatinine Clr Calc Pharmacy 67.1; Estimated Glomerular Filt Rate > 60; Potassium 4.5 mmol/L (3.3-5.1); Sodium 141 mmol/L (135-145)
[2025-03-18] VITALS (16 sets, daily range): BP systolic 124–156; BP diastolic 52–96; PULSE 56–95; RESP 12–20; TEMP 36.1–36.9; O2SAT 92–97; BMI 26.1
--- NOTE | ~2025-03-18 | XR_ITS ---
CLINICAL HISTORY: 1.2 cm linear radiopaque density sigmoid 1 view abdomen Comparison: None provided Findings: No plain film areas of pneumoperitoneum or pneumatosis. The bowel loops are not dilated. No abnormal calcifications. No acute fractures. Postsurgical changes with hardware in the lumbar spine. Otherwise no radiopaque foreign bodies. IMPRESSION: The bowel gas pattern is within normal limits There are no radiopaque foreign bodies. There are postsurgical changes with hardware in the lumbar spine. Correlate with procedural report This document has been electronically signed by: Clive Topete MD on 03/18/2025 18:27:00
--- NOTE | ~2025-03-18 | FL_ITS ---
EXAMINATION: FLUOROSCOPY GUIDANCE FOR NEEDLE PLACEMENT CLINICAL INFORMATION: L2-3, L3-4 OLIF with revision COMPARISON: Lumbar spine x-ray most recent November 2024 TECHNIQUE: Intraoperative fluoroscopy guidance lumbar spine surgery. FINDINGS: Images demonstrate existing disc interspacer at L4-5 and removal of posterior fusion crow and interpedicular screws at L5. New posterior fusion hardware with posterior rods and bilateral interpedicular screws at L2 and L3 and disc interspacers at L2-3 and L3-4. See procedure note for detailed findings. FLUOROSCOPY TIME: 1.76 minutes DOSE AREA PRODUCT: 4 submitted fluoroscopic images. 173 Gy/sq cm. FL/FL guidance in OR IMPRESSION: Fluoroscopy guidance for lumbar spine surgery. Electronically signed by: Emma Black MD 03/19/2025 08:51 AM [facility] [place]
--- NOTE | ~2025-03-18 | CT_ITS ---
EXAMINATION: CT ABDOMEN PELVIS WITHOUT IV CONTRAST HISTORY: Edema and crepitus near abdominal incision site COMPARISON: Fluoroscopy images from lumbar spine surgery from earlier the same day TECHNIQUE: CT scan of the abdomen and pelvis was performed without contrast using standard departmental protocol. Coronal and sagittal reformatted images were generated and reviewed. This CT exam was performed with one or more of the following dose reduction techniques: automated exposure control, adjustment of the mA and/or kV according to patient size, use of iterative reconstruction technique. DLP: 555 mGy-cm FINDINGS: LOWER CHEST: The visualized lung bases are clear. There is no pleural effusion. CARDIOVASCULATURE: The heart is normal in size. There is no pericardial effusion. LIVER: The liver is normal in size and contour. The liver has an unremarkable unenhanced appearance. GALLBLADDER / BILE DUCTS: The gallbladder is unremarkable. There is no intra or extrahepatic biliary ductal dilatation. SPLEEN: The spleen is normal in size and has an unremarkable unenhanced appearance. PANCREAS: The pancreas has an unremarkable unenhanced appearance. ADRENAL GLANDS: Unremarkable. KIDNEYS/RETROPERITONEUM: No renal calculi are identified. There is no hydronephrosis. LYMPH NODES: No retroperitoneal lymphadenopathy is identified in the abdomen or pelvis. VASCULATURE: No aneurysm. MESENTERY/PERITONEUM: There is a small amount of free intraperitoneal air. There is a patent left processes vaginalis and air seen in the left inguinal canal and scrotum. There is air seen in the left anterior abdominal wall musculature and in the subcutaneous fat over the left anterior lateral abdominal wall. There is air seen in the left psoas muscle. The left psoas muscle appears in slightly enlarged and heterogeneously increased in attenuation suggestive of a small hematoma. There is retroperitoneal air adjacent to the anterior lateral left upper psoas muscle. There is trace fat stranding and a small amount of fluid in the left retroperitoneum anterior to the left psoas muscle. No other evidence of ascites. STOMACH: Normal SMALL BOWEL: The small bowel is normal in caliber. COLON: There is diverticulosis of the distal colon. No evidence of diverticulitis. There is a linear radiopaque density in the proximal sigmoid colon measuring 1.2 cm in length questionable for something the patient has ingested such as a foreign body grille brush. Cannot exclude needle. APPENDIX: Normal. URINARY BLADDER/PELVIC ORGANS: The urinary bladder is unremarkable. The prostate gland is slightly enlarged. BONES / SOFT TISSUES: There is surgical hardware seen in the lower lumbar spine with posterior fusion hardware with posterior rods and bilateral interpedicular screws from L2 to L4. There are vertebral body disc spacers at L2-3 L3-4 and L4-5. Is a small amount of air in the paraspinal soft tissues in these regions. Mild lumbar scoliosis. Degenerative changes of the spine and hips. Lucent lesion in the left posterior iliac bone near the sacroiliac joint. This has negative Hounsfield units and may represent a fatty lesion. This measures 1.5 x 3 cm. Small umbilical hernia containing fat. CT/CT abdomen pelvis wo IV con IMPRESSION: Small amount of free intraperitoneal air. Small amount of left retroperitoneal air tracking into the left scrotum. Small amount of air in the left anterior abdominal wall muscles and larger amount of air in the overlying subcutaneous fat. Heterogeneous increased attenuation of the left psoas muscle suggestive of hematoma and small amount of air. Small amount of retroperitoneal fluid anterior to the left psoas muscle and fat stranding that could represent blood. Diverticulosis of the distal colon. 1.2 cm linear radiopaque density in the proximal sigmoid colon questionable for possible foreign body. Findings were communicated to Dr. Holman by Dr. Freeman on 03/18/2025 in person at the conclusion of the exam and by tiger text at 5:13 PM. Post surgical changes to the lumbar spine and small amount of air in the soft tissues from recent surgery. Electronically signed by: Emma Black MD 03/18/2025 05:15 PM [facility] [place]
--- NOTE | 2025-03-18 09:56 | PHA.MEDREC ---
Addendum entered by Titus Pelletier RPh 03/18/25 10:39: MED REC REVIEWED BY [facility] Original Note: Pharmacy Consult ? Medication Reconciliation Pharmacy has reviewed the medication reconciliation done by nursing.
[2025-03-18] MEDS: Lactated Ringers 1,000 ML 100 ML IVCONT (10:09)
--- OUTSIDE RECORDS SUMMARY | 2025-03-18 11:00 | XMS_ITS | Data Portability ---
Author Organization [place] - [facility], Main Office Address [address] [place] [address] [address] [address] Care Team Providers Care A Auxiliary Name Role Phone CHELSIE GEORGINA Primary Care Provider COBY LEO Referring Provider Assessment No assessment recorded. Plan of Treatment Reminders Order Date Submit Date Provider Last Modified By Organization Details Last Modified Time Details Appointments None record ed. Lab None record ed. Referral None record ed. Procedures None record ed. Surgeries None record ed. Imaging None record ed. Medication Orders None record ed. Patient TargetsNo targets recorded. Patient InstructionsNo instructions recorded. Reason for Referral None Reported. Results Created Date Observation Date Name Description Value Unit Range Abnormal Flag Note LastModifiedBy Organization Detail LastModifiedTime 06/28/19 23 06/08/2022 MRI, lumba r spine , w/wo contr ast No observ ation record ed. [email or web address] Not Available 2022 13:50:24 Result Notes None recorded. Procedures Surgical History Date Name Laterality Status Provider Name and Address Organization Details Recorded Time Back Surgery completed Harriet Mao [place] - [facility] 06/29/2022 13:40:32 Imaging Results None recorded. Procedure Notes None recorded. Medical Equipment None Reported. Allergies No known drug allergies Medications Name Sig Start Date Stop Date Status Note LastModified by Organization Details LastModified Time doxycycline hyclate 100 mg capsule active Not Available Not Available N ot Available gabapentin 300 mg capsule PLEASE SEE ATTACHED FOR DETAILED DIRECTIONS active Not Available Not Available N ot Available methylpredni solone 4 mg tablets in a dose pack TAKE DIRECTED ACCORDING TO PACKAGE INSTRUCTION S X6DAYS active Not Available Not Available No t Available Vitals None Recorded Social History Question Answer Notes LastModified by Organizat ion Details LastModified Time Tobacco Smoking Status Never Smoker [email or web address] 06/29/2022 13:40:50 What Is Your Level Of Caffeine Consumption? Moderate [email or web address] Information not available 06/29/2022 What Was The Date Of Your Most Recent Tobacco Screening? 06/29/2022 Information not available 06/29/2022 Sex: Unknown Functional Status Question Answer Note LastModified by Organizat ion Details LastModified Time Do you use any illicit or recreational drugs? No Information not available 06/29/2022 Do you or have you ever used any other forms of tobacco or nicotine? No [email or web address] Information not available 06/29/2022 What is your level of alcohol consumption? Occasional Information not available 06/29/2022 Mental Status None recorded. Family History Relationship Description Onset Age of this Age Resolved Age Notes LastModified by Organization Details LastModified Time Father Malignant neoplastic disease [email or web address] Not available 2022 13:40:24 Medical History Condition Response Back Problems Y Past Encounters Encounter ID Performer Location Encounter Start Date Encounter Closed Date Diagnosis/Indication Diagnosis SNOMED-CT Code Diagnosis ICD10 Code Diagnosis IMO Codes Diagnosis Note [id number] Nuha Tamayo MD Main Office [address] [place] [phone] 06/29/2022 12:55:06 06/29/2022 14:08:33 Numbness of foot 200456265 R20.0 Lumbar radiculopathy 128 677272 M54.16 Health Concerns Section Related Observation LastModified by Organization Detai ls LastModified Time None Recorded Concern Status LastModified by Organization Details LastModified Time None Recorded Advance Directives Directive None Recorded Payers Insurance Date Sequence Insurance Name Policy Number Policy Grace Covered Member ID Grace Member ID Guarantor Name 06/27/2022 2 [place] [id number] Joesph Guy [id number] Joesph Guy 06/28/2022 1 [place] Joesph Guy [id number] Joesph Guy
--- NOTE | 2025-03-18 11:35 | P.HPSUR_ITS ---
Pre-Procedural Eval Section A - 24 Hr Update-Section A only Date of Service: 03/18/25 Section B - Complete if H&P > 30 days Chief Complaint: s/p L2-4 OLIF Allergies: Allergies Allergy/AdvReac Type Severity Reaction Status Date / Time No Known Allergies Allergy Verified 01/24/25 12:20 Review of Systems Sugical H&P ROS: Negative: Constitution, Cardiovascular, Respiratory, Neurol ogical, Psychiatric, Hem-Onc, Allergic/Immunologic, Gastrointestinal, Genitourinary, Musculoskeletal, Integumentary, Endocrine and Eyes/Ears/Nose/Throat Exam Surgical H&P Exam: Not Evaluated: HEENT, Not Evaluated: Heart, Not Evaluated: Lungs, Not Evaluated: Extremities, Not Evaluated: Abdomen, Not Evaluated: Skin and Not Evaluated: Neurological Exam Comment: The patient is awake, alert, in no acute distress. Proposed surgical incision site is clean, dry, with no signs of recent trauma. Plan Diagnosis/Plan: Unchanged I have reviewed the history and physical and performed a pertinent physical examination on my patient. No changes have occurred unless specified. Plan remains the same, L3-4 OLIF with revision of posterior instrumentation Time Spent With Patient Time: Total time managing care of this patient today __7__ minutes.
--- NOTE | 2025-03-18 15:00 | W.PM.OPN ---
Operative Note Operative Note Date of Service: 03/18/25 Narrative: Preop Diagnosis: 1.) Lumbar degenerative scoliosis 2.) Severe low back pain Procedure: 1) L2-3, L3-4 discectomy, arthrodesis and implantation cage through an anterolateral, retroperitoneal approach 2) removal L4-5 posterior instrumentation 3) L2-L4 posterior instrumented fusion 4) allograft Consent Informed Consent was obtained for this operation. I have explained the nature, purpose and benefits of the operation. I have discussed the risks and benefit of the operation including possible complications or adverse events with patient/family. Alternative(s) were discussed with the patient with their relative benefits and risks as well as the consequences of not accepting the operation were included in obtaining consent. Surgeon: GUSTAVO WANG MD, PHD Procedure Assisted By: HARVEY Noriega Description of Procedure This 84-year-old male is suffering from intractable low back pain. He had a previous L4-5 fusion done that to care of his neurogenic claudication symptoms. Imaging does reveal the preexisted lumbar degenerative scoliosis. The pain is so severe that we decided to correct the lumbar degenerative scoliosis through an oblique lumbar interbody fusion L2-3 and L3-4. The procedure and complications were explained. The patient was consented. The patient was brought to the operating room and endotracheally intubated. The patient was turned in a lateral position with the left side up. Prep and drape was done followed by timeout. A small incision was made in the upper abdominal quadrant. The muscle fascia was opened after which the 3 muscle layer was split to enter the retroperitoneal space. Dilators were docked in the anterior one third of the L3-4 disc space followed by a retractor. The retractor was opened. The L3-4 disc space was exposed. An annulotomy was done after which an elevator Ulloa was used to release the disc material from its endplates and to perforate the contralateral side. The disc was so deteriorated that hardly disc material was removed. An 8 mm height trial implant was inserted. The endplates were prepared. An 8 x 50 mm with 0 degree lordosis 4 web cage filled with allograft was inserted into the disc space under fluoroscopic guidance. Then attention was turned to the L2-3 level. Sequential dilators were placed followed by placement of a retractor over the anterior 1/3 of the L2-3 disc space. An annulotomy was done. An 8 mm trial implant was inserted which showed further correction of the degenerative scoliosis. The diskectomy was completed in the endplates were prepared. A 8 mm x 50 mm and 0 degree lordosis 4 web cage was inserted filled with allograft under fluoroscopic guidance. This resulted in uatsdin of the disc space heights and alignment of the lumbar spine. The retractor was removed. Hemostasis was done. The incision was closed in 2 layers. Steri-Strips used to approximate incision. An OpSite with Tegaderm was used to cover the incision. This marked first part of the procedure. The patient was turned prone on the Ti[place] spine table. 2C arms were installed for fluoroscopy. Prep and drape was done followed by a second timeout. The previous paramedian incisions were opened to expose the L4-5 instrumentation. The locking caps were unlocked after which the rods were removed. The L4-5 pedicle screws were removed. Then the following steps were taken for the L2 and L3 pedicles. A pediguard tap was used to create a transpedicular trajectory into the vertebral body. A K wire was placed. A specially designed instrument was advanced over the K wire to decorticate the posterolateral gutter in preparation for the posterolateral fusion. A pedicle screw was advanced over the K wire and the K wire was removed. The steps were done for the bilateral L2 and L3 pedicles. A total of 6 screws were placed in the L2, L3 and L4 pedicles with a diameter of 6.5 x 45 mm in the L2 and L3 pedicles and a diameter of 7.5 x 45 mm for the bilateral L4 pedicles. Pedicle screws were connected with 75 mm crow bilaterally and locked down with locking caps. The extension towers were removed. The posterolateral gutter was filled with allograft to complete the posterolateral L2-L4 fusion. Hemostasis was done and the incision was closed in 2 layers. Steri-Strips were used to approximate the incision. An OpSite with tegaderm was used to cover the incision. All sponge and needle counts were correct. Patient was extubated and transferred in stable is to recovery room. This procedure was done with the aid of physician assistant front office manager, who participated in placement of the pedicle screws, interpretation of x-rays, placement of allograft and closure of the incisions. Anesthesia: General Estimated Blood Loss (ml): 100 mL Duration of Surgery: 2.5 hours Complications: None Postoperative Plan: Admit to inpatient for clinical observation
--- NOTE | 2025-03-18 17:20 | PM.CNGS ---
History of Present Illness Consult details Consult date: 03/18/25 Requesting physician: Oracio Aguirre Narrative: 84-year-old male patient with a history of lumbar degenerative scoliosis and severe low back pain presenting today for L2-3, L3-4 diskectomy, arthrodesis and implantation cage to an anterior lateral, retroperitoneal approach, removal of L4-5 posterior instrumentation, L2-L4 posterior instrumented fusion, and allograft. Postoperatively the patient was noted to have swelling along the abdominal incision in the left abdomen with subcu emphysema. No bleeding or discharge was noted from the incision to indicate ongoing bleeding. Surgical consultation was requested for further evaluation. The patient denied abdominal pain or shortness of breath in the recovery room. A CT abdomen and pelvis was performed. This was reviewed with Dr. Freeman and Dr. Black. Scan revealed small amount of free intraperitoneal air, small amount of left retroperitoneal air tracking into the left scrotum, small amount of air in the left anterior abdominal wall muscles larger amount in the overlying subcutaneous fat. There is heterogeneous increased attenuation of the left psoas muscle suggestive of hematoma and a small amount of air. A small amount of retroperitoneal fluid anterior to the left psoas muscle and fat stranding could represent blood. Note was made of diverticulosis in the distal colon and a 1.2 cm linear radiopaque density in the proximal sigmoid colon questionable for a possible foreign body. Review of Systems Review of Systems: Yes Unobtainable due to mental condition PMFSH Past Medical History Medical History Consumes three beers daily GERD (gastroesophageal reflux disease) Erectile dysfunction Elevated cholesterol Back pain Scoliosis Hx of osteoarthritis Surgical History Surgical History Hx of repair of left rotator cuff (02/10/23) Hx of spinal surgery (12/19/22) Hx of neck surgery History of back surgery History of carpal tunnel release History of esophagogastroduodenoscopy (EGD) H/O colonoscopy History of back surgery Social History Social History Household Members: Spouse Housing: House Are you a primary infant caregiver to a significant other at home: No Do you presently have visiting nurse or other home services: No Patient Tobacco Use Status: Never used Tobacco Use of substances other than those prescribed or required for medical reasons: No Have you been hit, kicked, punched, or otherwise hurt by someone within the past year? 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 occupation: left hand Meds Allergies Allergy/AdvReac Type Severity Reaction Status Date / Time No Known Allergies Allergy Verified 01/24/25 12:20 Active Medications: Current Medications Albuterol/Ipratropium (Albuterol/Iprat 2.5/0.5mg 3 Ml Ampul.Neb) 3 ml INHALE ONCE PRN PRN Reason: Bronchospasm/wheezing Stop: 03/18/25 18:23 Fentanyl (Fentanyl Citrate/Pf 100 Mcg/2 Ml Vial) 25 mcg IVPUSH Q5M PRN PRN Reason: Pain, Moderate to Severe (Pain Scale 4-10) Stop: 03/18/25 18:23 Hydromorphone HCl (Hydromorphone Hcl 0.5 Mg/0.5 Ml Syringe) 0.25 mg IVPUSH Q5M PRN PRN Reason: Pain, Moderate to Severe (Pain Scale 4-10) Stop: 03/18/25 18:23 Last Admin: 03/18/25 17:15 Dose: 0.25 mg Lactated Ringer's (Lr) 1,000 mls @ 100 mls/hr IVCONT .Q10H MELIZA Last Admin: 03/18/25 10:09 Dose: 100 mls/hr Naloxone HCl (Naloxone Hcl 0.4 Mg/Ml Vial) 0.04 mg IVPUSH Q5M PRN PRN Reason: Excessive sedation or RR < 8 Ondansetron HCl (Ondansetron Hcl 4 Mg/2 Ml Vial) 4 mg IVPUSH ONCE PRN PRN Reason: Nausea and Vomiting Stop: 03/18/25 18:23 Oxycodone HCl (Oxycodone Hcl Immed Release 5 Mg Tablet) 5 mg PO ONCE PRN PRN Reason: Pain, Moderate(Pain Scale 4-6) if no IV Access Stop: 03/18/25 18:23 Home Medications ?Medication ?Instructions ?Recorded ?Confirmed ?Last Taken ?Type omeprazole 20 mg tablet,delayed 40 mg PO DAILY 12/12/22 03/18/25 03/18/25 History release acetaminophen 500 mg tablet 1,000 mg PO BID PRN Pain 03/18/25 03/18/25 03/16/25 History Physical Exam Vital Signs: Vital Signs: Last Vital Signs Temp 97 F 03/18/25 15:40 Pulse 77 03/18/25 17:15 Resp 18 03/18/25 17:15 BP 140/81 H 03/18/25 17:15 Pulse Ox 96 03/18/25 17:15 O2 Del Method Nasal Cannula 03/18/25 17:15 O2 Flow Rate 2 03/18/25 17:15 BMI result Body Mass Index 24.7 Const: General: healthy appearing and no acute distress Nutritional Appearance: well nourished Orientation/consciousness: patient oriented x3 Resp: Effort & Inspection: normal respiratory effort, no audible wheezes, no cough and no respiratory distress Auscultation: clear to auscultation bilaterally Cardio: Jugular venous distension: no JVD Rate: regular rate Rhythm: regular rhythm GI: Other: Soft, nondistended, nontender to deep palpation, no rebound or guarding. Palpable subcutaneous emphysema in the left abdomen extending into the left lower quadrant and scrotum. No erythema or ecchymosis. Skin: Other: Warm, dry, no rash Neuro: General: patient oriented x3 Results Labs 03/04/25 10:39 03/04/25 10:39 Labs: All other labs normal. Imaging Abdomen CT scan report/results: image reviewed CT scan - pelvis: image reviewed Assessment and Plan (1) S/P spinal fusion: Status: Acute Plan 84-year-old male patient status post spinal surgery today found to have evidence of subcutaneous emphysema around the incision in the left abdomen. The patient denied abdominal pain or shortness of breath. Workup with CT abdomen and pelvis did reveal some intraperitoneal air and a small amount of blood around the left psoas muscle. This was reviewed with Dr. Aguirre and felt to be possible with this type of surgery. There was no evidence of bowel perforation at this time. Of interest is the intraluminal proximal sigmoid radiopaque density 1.[address] which seems to be unrelated to the above findings. This may have been ingested unbeknownst to the patient. KUB has been ordered and a follow-up CT angio requested for tomorrow. Procedures Date of Service Date of Service: 03/18/25
[2025-03-19 03:05] VITALS: BP 113/62; PULSE 72; RESP 16; TEMP 36.9; O2SAT 92
--- NOTE | 2025-03-19 07:03 | HO.NEUROPN_ITS ---
Neurosurgery Operative Note Date of Service: 03/19/25 Narrative: POD: 1 Procedure: L2-4 OLIF with revision posterior instrumentation at L4-5. Joesph is a aron 84 y/o male who underwent the above mentioned procedure with Dr. Aguirre yesterday. He was seen this morning sitting upright in bed on / room 457. He reports that last night after surgery he had low back pain near surgical site, but feels better this morning. Yesterday in the acute postoperative. The patient was recovering in PACU we were alerted by nursing staff of possible hematoma near incision site. After inspection by Dr. Aguirre and Dr. Hill the edema noted near the incision site on the lateral abdomen wa s also noted to have a component of crepitus. A stat CT scan of the abdomen was ordered, showing some air trapped likely as a result of surgery, but no acute bowel perforation or pneumothorax. The patient was clinically stable at this point. He was transferred to [facility] as a precautionary measure. This morning he reports very good overall resolution of his pain since surgery. He feels he has functionally doing well, and has been up out of bed walking around his room into the bedside chair. He reports that he is voiding normally and has been to the bathroom several times. He is tolerating his current diet. He asked us if he is able to return home today. Afebrile, vital signs stable. The patient moves his bilateral lower extremities spontaneously. No issues reported with weakness when ambulating. No sensational deficits reported during exam. Back and anterolateral dressings have some staining without signs of hematoma. No obvious signs of abnormal edema/crepitus near the abdominal incision site. No active sanguineous drainage. Area is dry. Plan: Aron 84 y/o male who underwent the above mentioned procedure with Dr. Aguirre yesterday. All clinical signs concerning for operative complication have subsided. He meets criteria to be medically discharged home. He was seen at bedside with Dr. Aguirre. I will send in a prescription for pain medication and a stool softener to the pharmacy here at [facility]. Denilson Aguirre MD,PhD [facility]
[2025-03-19 07:21] VITALS: BP 127/59; PULSE 75; RESP 16; TEMP 36.6; O2SAT 94
--- NOTE | 2025-03-19 07:33 | PM.DS ---
DS: Providers Provider Date of Service: 03/19/25 Date of admission: 03/18/25 09:44 Date of discharge: 03/19/25 Primary care physician: Chinmay Maria MD DS: Diagnosis Discharge Diagnosis (1) S/P spinal fusion: Status: Acute DS: Summary Time Attestation Discharge Coordination Time (in mins): 12 Quality: Safe Use of Opioids Does Pt have an Active Cancer Diagnosis on the Problem List?: No Quality: Stroke Does the patient have a stroke diagnosis?: No Physical Exam Vital Signs: Vital Signs: Last Vital Signs Temp 97.9 F 03/19/25 07:21 Pulse 75 03/19/25 07:21 Resp 16 03/19/25 07:21 BP 127/59 L 03/19/25 07:21 Pulse Ox 94 03/19/25 07:21 O2 Del Method Room Air 03/19/25 07:21 O2 Flow Rate 2 03/18/25 19:56 BMI result Body Mass Index 26.1 DS: Data Data Completed and Pending Completed studies during hospitalization [Text1]: Procedures Excision of Lumbar Vertebral Disc, Open Approach (12/19/22) Fusion of Lumbar Vertebral Joint with Interbody Fusion Device, Anterior Approach, Anterior Column, Open Approach (12/19/22) Insertion of Interspinous Process Spinal Stabilization Device into Lumbar Vertebral Joint, Open Approach (12/19/22) Monitoring of Peripheral Nervous Electrical Activity, Intraoperative, External Approach (12/19/22) Discharge Plan Discharge Anticipated Discharge Date/Time: 03/19/25 07:33 Patient Disposition: Home, Self-Care Discharge Diagnosis: s/p L2-4 OLIF w/ revision posterior instrumentation Referrals: Chinmay Maria MD [Primary Care Provider, Internal Medicine] - 1 Week Discharge Medications: New oxycodone 5 mg tablet See Rx Instructions .ROUTE .COMPLEX PRN (Reason: pain) Qty: 30 0RF Rx Instructions: Take 1-2 tablets by mouth every 4 hours; Partial Fill upon patient request. docusate sodium 100 mg capsule 100 mg PO BID PRN (Reason: constipation) Qty: 14 0RF Continued omeprazole 20 mg Tablet,Delayed Release (Dr/Ec) 40 mg PO DAILY acetaminophen 500 mg tablet 1,000 mg PO BID PRN (Reason: Pain) Discharge Orders: Discharge Order (Routine); Ordered 03/19/25 Ordered By: Denilson Pitrat Diet: Advance to usual diet Activity on Discharge: As tolerated Stand Alone Forms: Patient Portal Discharge page Print Language: Romanian Activity Restrictions/Additional Instructions: After your spinal surgery we ask you to observe the following restrictions/guidelines: Activity: It is normal to feel some discomfort as you increase your activity, but that will improve with time. We ask you avoid heavy lifting or acitivities that cause pain. As a general rule, 8lbs is a safe limit for lifting right after surgery. Walk as much as you feel comfortable but not to exhaustion. You will feel extra tired the first few days after surgery. Stay well hydrated. It is OK to walk up and down stairs You may return to driving when you are off narcotics (such as vicodin, oxycodone, dilaudid, etc), and you are back to normal functional capacity. If you have any concerns please check with office before driving. Return to work is specific to each patient and each surgery, so please speak with your doctor/PA at first follow up. Please bring paperwork such as FMLA at that time if you need it filled out. Medications: We recommend you take 500mg Tylenol every 4 hours for the first week after surgery, if you do not have any liver issues and can tolerate this medication. Do not exceed 4,000mg daily. We also recommend you take Ibuprofen 600mg every 8 hours for the first week after surgery starting on post op day 1, ?if you do not have any kidney or sugar control issues and can tolerate this medication. Do not exceed 2,000mg daily. We will give you a short supply of narcotics after surgery (usually one weeks worth). If you need more please call the office but do not use more than prescribed. You will need to give our office 48 hours notice if you need narcotics refilled and we do not fill narcotics on weekends or evenings. If you are on a narcotic, it is a good idea to take a stool softener such as colace or senna to avoid constipation If you take blood thinner such as aspirin, Plavix, Coumadin, Effient, Eliquis etc for conditions such as Afib, DVT, Pulmonary embolus, coronary disease, stents etc please speak with your surgeon about specific details as to when you can resume these medications. You can resume NSAIDs on post op day 1 (eg: Motrin, Naproxen, etc). Follow up: Please call the office, , after surgery to arrange a 3 week follow up for wound check. Wound Care: You may remove your dressing on the first day after surgery. ?You may ?leave open to air. Please do not remove the steri strips underneath. they will fall off on their own in one week. IT IS NORMAL FOR THE WOUND TO OOZE OR BE BLOODY FOR A FEW DAYS AFTER SURGERY. ?IF THIS HAPPENS JUST PLACE NEW DRESSING OVER IT TO AVOID STAINING CLOTHES. You may shower on post op day # 1 We ask that you do not let the water soak the wound. If it does get wet, just towel dry lightly. Please do not scrub your incision or place any type of chemical/ointment on the wound. No tub baths, pools or jacuzzis for one month. If you have any leaking or redness from your wound, or fevers, please call the office. Care Plan Goals: Return to normal activity as tolerated Health Concerns: None Plan of Treatment: Follow-up in clinic in 2-3 weeks Assessment: POD: 1 Procedure: L2-4 OLIF with revision posterior instrumentation at L4-5. Joesph is a pleasant 84 y/o male who underwent the above mentioned procedure with Dr. Aguirre yesterday. He was seen this morning sitting upright in bed on [facility] room 457. He reports that last night after surgery he had low back pain near surgical site, but feels better this morning. Yesterday in the acute postoperative. The patient was recovering in PACU we were alerted by nursing staff of possible hematoma near incision site. After inspection by Dr. Aguirre and Dr. Hill the edema noted near the incision site on the lateral abdomen was also noted to have a component of crepitus. A stat CT scan of the abdomen was ordered, showing some air trapped likely as a result of surgery, but no acute bowel perforation or pneumothorax. The patient was clinically stable at this point. He was transferred to [facility] as a precautionary measure. This morning he reports very good overall resolution of his pain since surgery. He feels he has functionally doing well, and has been up out of bed walking around his room into the bedside chair. He reports that he is voiding normally and has been to the bathroom several times. He is tolerating his current diet. He asked us if he is able to return home today. Afebrile, vital signs stable. The patient moves his bilateral lower extremities spontaneously. No issues reported with weakness when ambulating. No sensational deficits reported during exam. Back and anterolateral dressings have some staining without signs of hematoma. No obvious signs of abnormal edema/crepitus near the abdominal incision site. No active sanguineous drainage. Area is dry. Plan: Pleasant 84 y/o male who underwent the above mentioned procedure with Dr. Aguirre yesterday. All clinical signs concerning for operative complication have subsided. He meets criteria to be medically discharged home. He was seen at bedside with Dr. Aguirre. I will send in a prescription for pain medication and a stool softener to the pharmacy here at [facility]. Denilson Aguirre MD,PhD [facility]
[2025-03-19] MEDS: oxyCODONE HCl Immed Release 5 MG TABLET PO (08:07)
--- NOTE | 2025-03-19 08:08 | HO.POSTANES ---
Post Anesthesia Evaluation Post Anesthesia Evaluation Date of Service: 03/19/25 Vital Signs: Vital Signs Temp Pulse Resp BP Pulse Ox O2 Del Method 03/19/25 07:21 97.9 F 75 16 127/59 L 94 Room Air 03/19/25 03:05 98.5 F 72 16 113/62 92 Room Air 03/18/25 23:38 88 18 141/73 H 95 Room Air Anesthesia: General Mental Status: Awake Pain Control: Satisfactory Nausea/Vomiting: None Hydration: Adequate Anesthesia-Related Issues: No Anes. Related Issues
--- NOTE | 2025-03-19 08:45 | MHC.CM.PN ---
CM met with Patient at bedside and addressed IMM with him, providing Patient with the original and a copy has been placed on the chart. Patient lives in a house with his /HCP/Poonam who will transport to home. Patient has a walker at home to assist him. Patient has been medically cleared for dc to home today, self care.PCP is Dr.Howard Bower
== END 2025-03-19 11:57 | disposition home or self-care (01) | DRG 458 ==
LOC: HO.SSSA 09:45 → HO.S3 16:47 → HO.SSSA 16:51 → HO.IMC 17:22
PROVIDERS: Nurse Practitioner; Admitting Provider Neurological Surgery; PCP Internal Medicine; Visit Provider Neurological Surgery
PROC: 0SG10A0 Fusion of 2 or more Lumbar Vertebral Joints with Interbody Fusion Device, Anterior Approach, Anterior Column, Open Approach (ICD-10-PCS; principal; 2025-03-18 11:50)
DX: M54.50 Low back pain, unspecified (principal); M41.56 Other secondary scoliosis, lumbar region; Z79.899 Other long term (current) drug therapy
CPT/HCPCS: 36415; 74018; 74176; 80048; 85027; 86850; 86900; 86901; 97161; C1713; C1889; J0131; J0665; J0690; J1100; J1171; J1885; J2003; J2405; J2704; J3010; L8699

== ENCOUNTER 2025-03-18 09:44 | Outpatient (BNV) | payer MEDICARE, SELFPAY | END 2025-03-18 16:00 | PROVIDERS: Admitting Provider Neurological Surgery; PCP Internal Medicine; Visit Provider Radiology Diagnostic Radiology | DX: R19.09 Other intra-abdominal and pelvic swelling, mass and lump (principal); R19.8 Other specified symptoms and signs involving the digestive system and abdomen | CPT/HCPCS: 74176 ==

== ENCOUNTER → 2025-03-18 09:44 | Outpatient (BNV) | payer MEDICARE, SELFPAY | PROVIDERS: Admitting Provider Neurological Surgery; PCP Internal Medicine; Visit Provider Surgery | DX: Z98.1 Arthrodesis status (principal) | CPT/HCPCS: 99222 ==

== ENCOUNTER → 2025-03-18 09:44 | Outpatient (BNV) | payer MEDICARE, SELFPAY | PROVIDERS: Admitting Provider Neurological Surgery; PCP Internal Medicine; Visit Provider Neurological Surgery | DX: Z98.1 Arthrodesis status (principal); Z48.89 Encounter for other specified surgical aftercare | CPT/HCPCS: 20930; 22558; 22585; 22612; 22614; 22840; 22853; 99024; 99499 ==

== ENCOUNTER 2025-04-09 14:38 | Outpatient (AMB) | payer MEDICARE, SELFPAY ==
--- OUTSIDE RECORDS SUMMARY | 2020-07-15 03:30 | XMS_ITS | Continuity of Care Document ---
Author Organization [facility] Address [address] [place] [address] Phone Care Team Providers Care Levelman Name Role Phone Parker Spring MD Unavailable Unavailable Allergies, Adverse Reactions, Alerts Substance Reaction Status Criticality No Known Allergies Active No Inform ation Medications Medication Instructions Dosage Effective Dates (start - stop) Status Comments Aleve 220 mg tablet take 1 tablet by oral route every 12 hours as needed as needed 220 MG - Active Medrol (Edi) 4 mg tablets in a dose pack As directed for 6 days. - No Longer Active Procedures Procedure Date Office/outpatient visit,[facility] 2020 Advance Directives Directive Yes / No Effective Date File Name Life Support Not Answered N/A N/A Other Directive No N/A N/A WARNING:The information contained in this section is historical and is provided for information only and does not constitute a legal document or any assurance that the information is still accurate. Please verify the information with the [place] of the legal document before using it for clinical purposes. Encounters Encounter Description Practice Location Reason(s) For Visit Diagnoses Date Provider Providers Copied on Encounter Office/outpat ient visit,[facility], [address], [place], [place], [id number], tel:[phone] [facility] 400 right ankle pain (chief complaint) Acute right ankle painPrimary osteoarthritis of right ankle Clementine Canales. [address], [place], [place], [address] , . tel:[phone] Referring Provider: Parker Spring MD D, [address], [place], [address] . tel:[phone] Family History Family Member Type Diagnosis Age At Onset Problem (finding) Family history of Cance r Payers Payer name Insurance type Covered democrat ID Authoriza tion(s) MEDICARE MB [id number] BCBS PPO OUT OF STATE [id number] Social History Type Description Quantity Date Captured Comments Alcohol Use Details beer & liquor 1 drink occasionally Jul Caffeine Use Details coffee 2 cups per day Tobacco Use Status Current non-smoker Smoking Status Never smoker Non-Smoking Tobacco Use Details : No Details Available : No Details Available Sex Male Vital Signs Date / Time: Height Weight BMI Pulse Rate Blood Pressure Temperature Respiratory Rate Body Surface Area Head Circumference Head Circ. Percentile Wt./Hermin[place]. Percentile BMI percentile Pulse Ox Inhaled Ox 8:29 AM 64.00 in 68.039 kg (150.00 lbs) 25.7 5 kg/m eter (2) 1.75 meter(2) Chief Complaint And Reason For Visit From encounter dated '07/15/2020 08:30'. right ankle pain (chief complaint). Description: Joesph Guy is a 80 year old male. He presents with pain on the right side. He states that the symptoms have been acute non-traumatic and began 1month ago. The pain is described as sharp and aching. He rates his worst pain as 7/10. He rates hiscurrent pain as 0/10. The pain radiates from the ankle on the right side then to the thigh and hip on the right side. The symptoms are aggravated by no specific activity. Joesph states that the symptoms are relieved by no specific activity. Reason For Referral Reason For Referral No Information Plan Of Treatment Date Type Action Status Referral Ordered: X-ray exam of ankle, complete RT ordered History Of Present Illness Encounter Date Complaint History Of Prese nt Illness Mar-10-2021 right ankle pain Joesph olivas is a 80 year old male. He presents with pain on the right side. He states that the symptoms have been acute non-traumatic and began 1 month ago. The pain is described as sharp and aching. He rates his worst pain as 7/10. He rates his current pain as 0/10. The pain radiates from the ankle on the right side then to the thigh and hip on the right side. The symptoms are aggravated by no specific activity. Joesph states that the symptoms are relieved by no specific activity. Functional Status Date Functional Assessmen t No Information Instructions Date Instruction Additional Infor mation The patient appears to have tibialis anterior tendinitis. We have discussed injections, medications and surgical intervention. I reviewed x-rays which reveal a possible ankle osteophyte anteriorly. I have recommended a Medrol Dosepak. We have discussed possible referred pain from the spine. If the patient's symptoms do not improve significantly on the Medrol Dosepak I would recommend physical therapy treatments to the tibialis anterior and lumbar spine Related to Acute right ankle pain Assessments Type Assessment Date assessment Acute right ankle pain 21 assessment Primary osteoarthritis of right ankle impression Acute right ankle pain. 021 Mental Status Date Cognitive Assessment Orientation - [place] ed to time, place, person, situation. Patient Care Teams Name Effective Dates (start - stop) Status Members No Information
--- NOTE | 2025-04-09 08:37 | HO.SPINEOV ---
Intake Visit Reasons: 1st post op Intake Note: Mr. Guy is here today for his 1st post op. Behavior Therapist Required: No Allergies No Known Allergies Allergy (Verified 01/24/25 12:20) Assessment & Plan Assessment & Plan (1) S/P spinal fusion: Code(s): Z98.1 - Arthrodesis status Category: Surgical Plan Procedure: 1) L2-3, L3-4 discectomy, arthrodesis and implantation cage through an anterolateral, retroperitoneal approach 2) removal L4-5 posterior instrumentation 3) L2-L4 posterior instrumented fusion 4) allograft Joesph is a pleasant 84 year old male who comes in today for his 1st postoperative visit after having the above-listed procedure with Dr. Aguirre a few weeks ago. He reports overall good resolution of his preoperative pain. He is very happy with his procedure. To recap there was some concern regarding air collection near his incision site after surgery, however this was determined to be trapped air from the procedure vs. something more serious such as a bowel perforation. We did consult general surgery who recommended no further intervention. Today he reports he has done remarkably well since his surgery. He has been standing up straight, and ambulating greater than 1 mile on a regular basis without much issue. He reports that he is very happy with his procedure overall. He did state that he still has quite a bit of swelling near the lateral incision site. Dr. Aguirre was available to evaluate this alongside me during this visit. No new neurological deficits. The patient ambulates well and rises from a seated position without difficulty. He uses no assistive devices to ambulate. His posterior / anterolateral incision sites are closed and well healing with no signs of erythema / drainage. He does continue to have some notable edema and near the left lateral incision site which was evaluated by Dr. Aguirre and determined to be likely muscular in origin. This is likely due to the patient's degenerative scoliosis prior to his operation, causing him to lean toward the right hand side at rest. I would like to follow up with the patient again in 6 weeks for his 2nd postoperative visit with a set of x-rays. Dr. Aguirre does not recommend any additional imaging regarding the abdominal edema / swelling mentioned in physical exam. This will likely resolve in time. Denilson Aguirre MD,PhD [facility] Coding Level of Care Code Global (51200) Diagnoses S/P spinal fusion Z98.1
--- OUTSIDE RECORDS SUMMARY | 2025-04-09 17:33 | XMS_ITS | Data Portability ---
Author Organization [place] - [facility], Main Office Address [address] [place] [address] [address], [place] [address] Care Team Providers Care Java Sybase Developer Name Role Phone CHELSIE GEORGINA Primary Care [...] Recorded Time Back Surgery completed Harriet Mao [place] [facility] 06/29/2022 13:40:32 Imaging Results None recorded. Procedure [...] Tobacco Smoking Status Never Smoker [facility] 06/29/2022 13:40:50 What Is Your Level Of Caffeine Consumption? Moderate Information not available 06/29/2022 What Was The Date Of Your Most Recent Tobacco Screening? 06/29/2022 [email or web address] Information not available 06/29/2022 Sex: Unknown Functional Status Question Answer Note LastModified by Organizat ion Details LastModified Time Do you use any illicit or recreational drugs? No Information not available 06/29/2022 Do you or have you ever used any other forms of tobacco or nicotine? No [email or web address] Information not available 06/29/2022 What is your level of alcohol consumption? Occasional [email or web address] Information not available 06/29/2022 Mental Status None recorded. Family History Relationship Description Onset Age of this Age Resolved Age Notes LastModified by Organization Details LastModified Time Father Malignant neoplastic disease [email or web address] Not available 2022 13:40:24 Medical History Condition Response Back Problems Y Past Encounters Encounter ID Performer Location Encounter Start Date Encounter Closed Date Diagnosis/Indication Diagnosis SNOMED-CT Code Diagnosis ICD10 Code Diagnosis IMO Codes Diagnosis Note [id number] Nuha Tamayo MD Main Office [address] [place] [phone] 06/29/2022 12:55:06 06/29/2022 14:08:33 Numbness of foot 930918181 R20.0 Lumbar radiculopathy 128 [id number] M54.16 Health Concerns Section Related Observation LastModified by Organization Detai ls LastModified Time None Recorded Concern Status LastModified by Organization Details LastModified Time None Recorded Advance Directives Directive None Recorded Payers Insurance Date Sequence Insurance Name Policy Number Policy Grace Covered Member ID Grace Member ID Guarantor Name 06/27/2022 2 [place] [id number] Joesph Guy [id number] Joesph Guy 06/28/2022 1 [place] Joesph Guy [id number] Joesph Guy
== END 2025-04-09 15:44 | disposition home or self-care (01) ==
LOC: HO.HNS 14:39
PROVIDERS: PCP Internal Medicine; Visit Provider Physician Assistant
DX: Z98.1 Arthrodesis status (principal)
CPT/HCPCS: 99024

== ENCOUNTER → 2025-04-09 14:38 | Outpatient (BNVA) | payer MEDICARE, SELFPAY | PROVIDERS: PCP Internal Medicine; Visit Provider Physician Assistant | DX: M47.816 Spondylosis without myelopathy or radiculopathy, lumbar region (principal); Z98.890 Other specified postprocedural states; Z98.1 Arthrodesis status | CPT/HCPCS: 99212 ==